=== PATIENT | female | born 1990 | race Caucasian/White ===

== ENCOUNTER → 2017-05-17 17:25 | Outpatient (CLI) | payer BC, SELFPAY ==
[2017-05-17 20:32] LABS: Chlamydia Trachomatis by PCR Negative (Negative); Neisserai gonorrhoeae by PCR Negative (Negative); Probe Check PASS; Sample Adequacy Control PASS; Specimen Processing Control PASS
[2017-05-25 07:18] LABS: HPV HC, High Risk Positive (Negative)
[2017-05-25 07:27] LABS: HPV Reflexed? YES, CHARGE PATIENT
== END ==
PROVIDERS: Visit Provider Obstetrics & Gynecology
DX: Z11.3 Encounter for screening for infections with a predominantly sexual mode of transmission (principal); R87.612 Low grade squamous intraepithelial lesion on cytologic smear of cervix (LGSIL)
CPT/HCPCS: 87491; 87591; 87624; 88175; G0145

== ENCOUNTER → 2017-06-03 11:08 | Outpatient (CLI) | payer BC, SELFPAY ==
[2017-06-03 13:52] LABS: Glucose, Dipstick Normal (Normal); Ketone-Dipstick Negative (Negative); Leukocyte Esterase-Dipstick Negative /ul (Negative); Nitrite-Dipstick Negative (Negative); Occult Blood-Urine Negative /ul (Negative); Protein-Dipstick Negative (Negative); Urine Bilirubin Dipstick Negative (Negative); Urine Clarity Clear (Clear); Urine Urobilinogen Normal (Normal)
[2017-06-03 13:54] LABS: Color, Urine Straw (Yellow)
[2017-06-03 13:56] LABS: Absolute Lymphocyte Count 2.47 X10^3/ul (0.83-4.51); Absolute Neutrophil Count 7.9 X10^3/uL (2.0-7.7); Basophil# 0.02 X10^3/uL; Basophil% 0.2 % (0-1); Eosinophil# 0.09 X10^3/uL; Eosinophils% 0.8 % (0-5); Hematocrit 41.8 % (37-47); Hemoglobin 13.9 g/dl (12.0-15.0); Lymphocyte # 2.47 X10^3/ul (4.0); Lymphocyte % 21.9 % (19-41); Mean Corp Hgb Conc 33.3 g/gl (32-36); Mean Corpuscular Hgb 28.1 pg (27.0-32.0); Mean Corpuscular Volume 84.4 fL (81-99); Mean Platelet Vol. 10.9 fl (6.2-12.0); Monocyte# 0.77 X10^3/uL; Monocyte% 6.8 % (0-10); Neutrophil # 7.91 X10^3/uL (2.7-7.7); Neutrophil % 69.9 % (47-70); Platelet Count 343 K/mm3 (150-450); RBC Distribution Width CV 14.2 % (11.6-14.6); RBC Distribution Width SD 43.5 fl (35.1-43.9); Red Blood Count 4.95 M/mm3 (4.2-5.4); White Blood Count 11.3 K/mm3 (4.4-11.0)
[2017-06-03 13:59] LABS: POSITIVE COUNT NO; POSITIVE DIFFERENTIAL NO; POSITIVE MORPHOLOGY NO
[2017-06-03 14:50] LABS: HIV - WCH Non-Reactive (Nonreactive); Rubella IgG 405.1 IU/mL
[2017-06-05 08:52] LABS: HEPATITIS B SURFACE AG Negative (Negative); Hep C Antibodies <0.1 s/co ratio (0.0-0.9)
[2017-06-10 02:54] LABS: Prenatal RPR NONREACTIVE (NONREACTIVE)
== END ==
PROVIDERS: Visit Provider Obstetrics & Gynecology
DX: Z34.81 Encounter for supervision of other normal pregnancy, first trimester (principal)
CPT/HCPCS: 36415; 81002; 84443; 85025; 86703; 86762; 86803; 87340

== ENCOUNTER → 2017-10-21 10:13 | Outpatient (CLI) | payer BC, SELFPAY ==
[2017-10-21 13:18] LABS: Hematocrit 35.7 % (37-47); Hemoglobin 11.2 g/dl (12.0-15.0); Mean Corp Hgb Conc 31.4 g/gl (32-36); Mean Corpuscular Hgb 26.2 pg (27.0-32.0); Mean Corpuscular Volume 83.4 fL (81-99); Mean Platelet Vol. 10.7 fl (6.2-12.0); Platelet Count 311 K/mm3 (150-450); RBC Distribution Width CV 14.7 % (11.6-14.6); Red Blood Count 4.28 M/mm3 (4.2-5.4); White Blood Count 13.5 K/mm3 (4.4-11.0)
[2017-10-21 13:29] LABS: Glucose Challenge Gest 1H 50g 213 mg/dL (70-140); Scan Indicated on CBC? Y/N NO
== END ==
PROVIDERS: Visit Provider Obstetrics & Gynecology
DX: Z34.83 Encounter for supervision of other normal pregnancy, third trimester (principal)
CPT/HCPCS: 36415; 82950; 85027

== ENCOUNTER 2017-11-08 14:00 | Outpatient (RCR) | payer BC, SELFPAY | END 2017-11-08 23:59 | LOC: NS 14:00 | PROVIDERS: Visit Provider Obstetrics & Gynecology | DX: O24.419 Gestational diabetes mellitus in pregnancy, unspecified control (principal); Z71.3 Dietary counseling and surveillance | CPT/HCPCS: 97802; G0108 ==

== ENCOUNTER 2017-12-02 15:43 | Outpatient (CLI) | payer BC, SELFPAY ==
[2017-12-02 16:42] VITALS: BMI 40.3
[2017-12-02 17:41] LABS: AST(SGOT) 13 U/L (15-37); Alanine Aminotransfer ALT/SGPT 18 U/L (13-56); Albumin, Serum 2.5 g/dL (3.2-5.0); Alkaline Phosphatase 147 U/L (45-117); Bilirubin, Direct 0.05 mg/dL (0.00-0.30); Globulin 4.4 g/dL (2.2-4.2); Protein, Total 6.9 g/dL (6.4-8.2)
--- NOTE | 2017-12-04 11:18 | OB.TRI.NOTE ---
History of Present Illness Reason For Visit: PRURITIS/ NST Date of Service: 12/02/17 Final MARYANN: 01/09/18 Gestational age: 34 Weeks and 4 Days History of Present Illness: 34+ week intrauterine presents for routine nonstress test for possible PUPPS. Allergies No Known Allergies Allergy (Verified 12/02/17 16:44) NST - FHR Rate Baby A NST Reactive:: Yes FHR Category:: Category I Impression/Plan 34+ week intrauterine with pruritus and possible PUPPS syndrome. Reactive nonstress test. Will release to home with routine instructions.
== END 2017-12-02 17:00 | disposition home or self-care (01) ==
LOC: WOBLAB 15:46 → WPOUT 16:14 → WP 16:15
PROVIDERS: Obstetrics & Gynecology; Visit Provider Obstetrics & Gynecology
DX: O26.893 Other specified pregnancy related conditions, third trimester (principal); L29.9 Pruritus, unspecified; Z3A.34 34 weeks gestation of pregnancy
CPT/HCPCS: 36415; 59025; 59050; 80076; 99218; G0378

== ENCOUNTER 2017-12-05 16:10 | Outpatient (CLI) | payer BC, SELFPAY ==
[2017-12-05 16:24] VITALS: BMI 41.7
--- NOTE | 2017-12-26 10:35 | OB.TRI.NOTE ---
History of Present Illness Date of Service: 12/05/17 Was patient seen by the physician?: No Reason For Visit: NST Date of Service: 12/05/17 Final MARYANN: 01/09/18 Gestational age: 35 Weeks and 0 Days History of Present Illness: 35 week intrauterine with gestational diabetes on glyburide presents for routine nonstress test. Allergies No Known Allergies Allergy (Verified 12/16/17 16:03) NST - FHR Rate Baby A NST Reactive:: Yes FHR Category:: Category I Impression/Plan 35 week intrauterine with gestational diabetes on glyburide. Reactive nonstress test. Continuing present care.
== END 2017-12-05 17:00 | disposition home or self-care (01) ==
LOC: WPOUT 16:14 → WP 16:16
PROVIDERS: Visit Provider Obstetrics & Gynecology
DX: O24.415 Gestational diabetes mellitus in pregnancy, controlled by oral hypoglycemic drugs (principal); Z3A.35 35 weeks gestation of pregnancy
CPT/HCPCS: 59025

== ENCOUNTER 2017-12-07 17:30 | Outpatient (RCR) | payer BC, SELFPAY ==
--- NOTE | 2017-12-07 06:14 | OB.TRI.NOTE ---
History of Present Illness Date of Service: 12/05/17 Was patient seen by the physician?: No Reason For Visit: GESTATIONAL DIABETES Date of Service: 12/05/17 Final MARYANN: 01/09/18 Gestational age: 35 Weeks and 0 Days History of Present Illness: 27 yo on Glyburide bid for gestational diabetes for scheduled NST . Allergies No Known Allergies Allergy (Verified 12/02/17 16:44) NST - FHR Rate Baby A Baseline: 120-130 with avg variabilty accels to 150-160 Variability:: Moderate Accelerations:: 15 x 15 Decelerations:: Variable - to 90 bpm, lasting less than 10 sec. NST Reactive:: Yes FHR Category:: Category I Uterine Activity:: no UCs noted Impression/Plan 35 wk gestational diabetes on Glyburide bid for scheduled NST Reactive NST Home Continue ofc visits as planned. NST twice weekly. Continue med and sugar checks.
== END 2017-12-09 23:59 ==
LOC: DC 17:30
PROVIDERS: Visit Provider Obstetrics & Gynecology
DX: O24.419 Gestational diabetes mellitus in pregnancy, unspecified control (principal); Z71.3 Dietary counseling and surveillance

== ENCOUNTER 2017-12-09 13:00 | Outpatient (CLI) | payer BC, SELFPAY ==
[2017-12-09 13:38] VITALS: BMI 41.5
--- NOTE | 2017-12-13 08:17 | OB.TRI.NOTE ---
History of Present Illness Date of Service: 12/09/17 Was patient seen by the physician?: No Reason For Visit: NST Date of Service: 12/09/17 Final MARYANN Source: US <20 weeks History of Present Illness: 27 yo diabetic female on Glyburide twice daily Presents for scheduled NST. Allergies No Known Allergies Allergy (Verified 12/02/17 16:44) NST - FHR Rate Baby A Baseline: 120-130 with accels to 160s. Variability:: Moderate, Marked Decelerations:: Variable - to 110 with quick return NST Reactive:: Yes, Appropriate for gestational age FHR Category:: Category I Uterine Activity:: rare UC noted Impression/Plan Gestational diabetic on Glyburide bid NST reactive Continue NST twice weekly, f/u appts as scheduled in ofc.
== END 2017-12-09 14:00 | disposition home or self-care (01) ==
LOC: WPOUT 13:05 → LAB 13:06
PROVIDERS: Visit Provider Obstetrics & Gynecology
DX: O24.415 Gestational diabetes mellitus in pregnancy, controlled by oral hypoglycemic drugs (principal); O76 Abnormality in fetal heart rate and rhythm complicating labor and delivery; Z3A.00 Weeks of gestation of pregnancy not specified
CPT/HCPCS: 59025

== ENCOUNTER 2017-12-12 11:00 | Outpatient (CLI) | payer BC, SELFPAY ==
[2017-12-12 11:12] VITALS: BMI 41.8
--- NOTE | 2017-12-12 22:17 | OB.TRI.NOTE ---
- Problem List (1) 36 weeks gestation of Status: Acute (2) Gestational diabetes Status: Acute Qualifiers: Gestational diabetes mellitus control: oral hypoglycemic-controlled Trimester: third trimester Qualified Code(s): O24.415 - Gestational diabetes mellitus in , controlled by oral hypoglycemic drugs History of Present Illness Date of Service: 12/12/17 Was patient seen by the physician?: No Reason For Visit: NST Final MARYANN: 01/09/18 Gestational age: 36 Weeks and 0 Days History of Present Illness: 27yo G1 @ 36 wga for scheduled NST, h/o GDM on Glyburide Allergies No Known Allergies Allergy (Verified 12/02/17 16:44) NST - FHR Rate Baby A Baseline: 130 Variability:: Moderate Accelerations:: 15 x 15 Decelerations:: None NST Reactive:: Yes FHR Category:: Category I Uterine Activity:: 0/10 Impression/Plan 27yo G1 @ 36wga with reactive NST d/c home
== END 2017-12-12 11:45 | disposition home or self-care (01) ==
LOC: WPOUT 11:01 → WP 11:03
PROVIDERS: Visit Provider Obstetrics & Gynecology
DX: O24.415 Gestational diabetes mellitus in pregnancy, controlled by oral hypoglycemic drugs (principal); Z3A.36 36 weeks gestation of pregnancy
CPT/HCPCS: 59025; 59050; 99218; G0378

== ENCOUNTER 2017-12-13 08:00 | Outpatient (RCR) | payer BC, SELFPAY | END 2017-12-13 23:59 | LOC: DC 08:00 | PROVIDERS: Visit Provider Obstetrics & Gynecology | DX: O24.419 Gestational diabetes mellitus in pregnancy, unspecified control (principal); Z71.3 Dietary counseling and surveillance ==

== ENCOUNTER 2017-12-16 15:45 | Outpatient (CLI) | payer BC, SELFPAY ==
[2017-12-16 16:02] VITALS: BMI 42.7
--- NOTE | 2017-12-19 07:56 | OB.TRI.NOTE ---
History of Present Illness Date of Service: 12/18/17 Was patient seen by the physician?: No Reason For Visit: NST Date of Service: 12/18/17 Final MARYANN: 01/09/18 Final MARYANN Source: US <20 weeks Gestational age: 37 Weeks and 0 Days History of Present Illness: GDM for scheduled NST Allergies No Known Allergies Allergy (Verified 12/16/17 16:03) Physical Exam General: Alert, Oriented x3, Cooperative, No apparent distress Cardiovascular: Regular rate, Regular Rhythm Lungs: Clear to auscultation, Normal air movement Abdomen: Soft, Non Tender, Non-Distended, Gravid, Appropriate for Gestational Age Extremities:: No edema Neurological: Neuro grossly intact Estimated gestational size: Appropriate for gestational size Presentation: Cephalic NST - FHR Rate Baby A Baseline: 130s Variability:: Moderate Accelerations:: 15 x 15 Decelerations:: None NST Reactive:: Yes, Appropriate for gestational age FHR Category:: Category I Uterine Activity:: none Impression/Plan Reassuring NST at 37 weeks.
== END 2017-12-16 16:55 | disposition home or self-care (01) ==
LOC: WPOUT 15:51 → WP 15:53
PROVIDERS: Visit Provider Obstetrics & Gynecology
DX: O24.419 Gestational diabetes mellitus in pregnancy, unspecified control (principal); Z3A.37 37 weeks gestation of pregnancy
CPT/HCPCS: 59025

== ENCOUNTER → 2017-12-16 18:29 | Outpatient (CLI) | payer BC, SELFPAY ==
[2017-12-16 21:35] LABS: Group B Strep DNA By PCR Negative (Negative); Internal Control PASS; Probe Check PASS; Specimen Processing Control PASS
== END ==
PROVIDERS: Visit Provider Obstetrics & Gynecology
DX: Z36.85 Encounter for antenatal screening for Streptococcus B (principal)
CPT/HCPCS: 87081; 87653

== ENCOUNTER 2017-12-19 16:00 | Outpatient (CLI) | payer BC, SELFPAY ==
[2017-12-19 16:12] VITALS: BMI 41.1
--- NOTE | 2017-12-22 07:57 | OB.TRI.NOTE ---
History of Present Illness Date of Service: 12/19/17 Was patient seen by the physician?: No Reason For Visit: NST Date of Service: 12/19/17 Final MARYANN: 01/09/18 Final MARYANN Source: US <20 weeks Gestational age: 37 Weeks and 0 Days History of Present Illness: 27 yo female on Glyburide presents for scheduled NST 2/2 gestational diabetes. Allergies No Known Allergies Allergy (Verified 12/16/17 16:03) NST - FHR Rate Baby A Baseline: 130-140s Variability:: Moderate Accelerations:: 15 x 15 Decelerations:: None NST Reactive:: Yes, Appropriate for gestational age FHR Category:: Category I Uterine Activity:: irreg UCs Impression/Plan Gestational diabetes on Glyburide bid Reactive NST home Continue Glyburide with inc dose as discussed, MFM referral RTO as scheduled NSTs twice weekly
== END 2017-12-19 16:45 | disposition home or self-care (01) ==
LOC: WPOUT 16:05 → WP 16:06
PROVIDERS: Visit Provider Obstetrics & Gynecology
DX: O24.415 Gestational diabetes mellitus in pregnancy, controlled by oral hypoglycemic drugs (principal); Z3A.37 37 weeks gestation of pregnancy
CPT/HCPCS: 59025; 59050; 99218; G0378

== ENCOUNTER 2017-12-27 16:05 | Outpatient (CLI) | payer BC, SELFPAY ==
--- NOTE | 2017-12-28 04:52 | OB.TRI.NOTE ---
History of Present Illness Date of Service: 12/27/17 Was patient seen by the physician?: No Reason For Visit: NST Date of Service: 12/27/17 Final MARYANN: 01/09/18 Final MARYANN Source: US <20 weeks Gestational age: 38 Weeks and 1 Days History of Present Illness: 27 yo diabetic female at 38 1/7 wk presents for scheduled NST Short stature, elects primary C/S due to EFW 8 04/12 - 9 # Allergies No Known Allergies Allergy (Verified 12/27/17 16:39) NST - FHR Rate Baby A Baseline: 130-140s with accels to 160s Variability:: Moderate Accelerations:: 15 x 15 Decelerations:: None NST Reactive:: Yes, Appropriate for gestational age FHR Category:: Category I Uterine Activity:: no UCs Impression/Plan Reactive NST Gestational diabetes on Glyburide Home. RTO as scheduled. Plan primary C/S 01/02/18
== END 2017-12-27 16:35 | disposition home or self-care (01) ==
LOC: WPOUT 16:05 → WP 16:05
PROVIDERS: Visit Provider Obstetrics & Gynecology
DX: O24.415 Gestational diabetes mellitus in pregnancy, controlled by oral hypoglycemic drugs (principal); Z3A.38 38 weeks gestation of pregnancy
CPT/HCPCS: 59025

== ENCOUNTER 2017-12-29 11:00 | Outpatient (CLI) | payer BC, SELFPAY ==
[2017-12-29 11:34] VITALS: BMI 42.5
--- NOTE | 2017-12-29 23:00 | OB.TRI.NOTE ---
- Problem List (1) 38 weeks gestation of Status: Acute History of Present Illness Date of Service: 12/29/17 Was patient seen by the physician?: No Reason For Visit: NST Final MARYANN: 01/09/18 Final MARYANN Source: US <20 weeks Gestational age: 38 Weeks and 3 Days History of Present Illness: Scheduled NST Allergies No Known Allergies Allergy (Verified 01/02/18 06:31) NST - FHR Rate Baby A Baseline: 150 Variability:: Moderate Accelerations:: 15 x 15 Decelerations:: None NST Reactive:: Yes FHR Category:: Category I Uterine Activity:: 0/10 Impression/Plan 27yo G1 @ 38 3/7wga with Cat I FHR d/c home
== END 2017-12-29 12:01 | disposition home or self-care (01) ==
LOC: WPOUT 11:08 → WP 11:08
PROVIDERS: Visit Provider Obstetrics & Gynecology
DX: O24.419 Gestational diabetes mellitus in pregnancy, unspecified control (principal); Z3A.36 36 weeks gestation of pregnancy; Z87.891 Personal history of nicotine dependence
CPT/HCPCS: 59025

== ENCOUNTER 2018-01-02 05:35 | Inpatient (IN) | payer BC, SELFPAY ==
[2017-12-29 11:37] VITALS: BMI 42.5
[2018-01-02] VITALS (23 sets, daily range): BP systolic 98–142; BP diastolic 38–86; PULSE 64–91; RESP 14–21; TEMP 35.7–36.6; O2SAT 97–100; BMI 42.3
[2018-01-02] MEDS: Lactated Ringers 1,000 ML 999 ML IV (06:00)
[2018-01-02 06:15] LABS: Bedside Glucose 78 mg/dL (70-110)
[2018-01-02 06:26] LABS: Absolute Lymphocyte Count 2.43 X10^3/ul (0.83-4.51); Absolute Neutrophil Count 6.2 X10^3/uL (2.0-7.7); Basophil# 0.02 X10^3/uL; Basophil% 0.2 % (0-1); Eosinophil# 0.04 X10^3/uL; Eosinophils% 0.4 % (0-5); Hematocrit 32.2 % (37-47); Hemoglobin 10.1 g/dl (12.0-15.0); Lymphocyte # 2.43 X10^3/ul (4.0); Lymphocyte % 25.5 % (19-41); Mean Corp Hgb Conc 31.4 g/gl (32-36); Mean Corpuscular Hgb 23.1 pg (27.0-32.0); Mean Corpuscular Volume 73.7 fL (81-99); Mean Platelet Vol. 11.8 fl (6.2-12.0); Monocyte# 0.81 X10^3/uL; Monocyte% 8.5 % (0-10); Neutrophil # 6.17 X10^3/uL (2.7-7.7); Neutrophil % 64.9 % (47-70); Platelet Count 250 K/mm3 (150-450); RBC Distribution Width CV 16.3 % (11.6-14.6); Red Blood Count 4.37 M/mm3 (4.2-5.4); White Blood Count 9.5 K/mm3 (4.4-11.0)
[2018-01-02 06:36] LABS: POSITIVE COUNT NO; POSITIVE DIFFERENTIAL NO; POSITIVE MORPHOLOGY NO
[2018-01-02 06:48] LABS: International Normalized Ratio 0.9; Prothrombin Time (Protime)PT. 12.1 SECONDS (11.7-14.9)
[2018-01-02 06:49] LABS: Partial Thromboplast Time 32.3 Seconds (24.1-36.2)
[2018-01-02] MEDS: Sodium Citrate/Citric Acid 30 ML UDC PO (07:02)
[2018-01-02] MEDS: Lactated Ringers 1,000 ML 150 ML IV (07:03)
[2018-01-02] MEDS: Cefazolin 2 GM in 0.9% Normal Saline 100 ML IV (07:26)
--- NOTE | 2018-01-02 07:30 | PCM.DCCSEC ---
Discharge Diet: No Restrictions Discharge Activity: May not drive while taking narcotic pain medications., May Shower, May Take a Tub Bath Return to work on:: 02/20/18 May resume sexual activity in: 4-6 weeks Lifting Restrictions: 20 pounds Additional Activity Instructions:: Nothing in the vagina for 4-6 weeks. You may return to work/school in 6 weeks. Change Dressing in (Days):: 4 Remove Dressing in (days):: 4 Cleanse incision/area with: Soap & Water, Keep Dressing Clean & Dry Additional Instructions: If you experience any of the following, contact your healthcare provider. Bleeding that soaks a pad every hour for 2 hours Fever 100.4 or higher Unrelieved incision or abdominal pain Swelling, redness, discharge or bleeding from your incision Problems urinating (including inability to urinate or burning while urinating). Visual changes Severe headache Flu-like symptoms Pain or redness in one of both of your breasts Pain, warmth, tenderness or swelling in your legs, especially the calf area Frequent nausea and vomiting Symptoms of depression or anxiety If you experience any of the following, call 911 or go to the nearest Emergency Room. Chest pain Problems breathing Seizure activity Partial or complete paralysis of a body part, slurred speech, weakness or drooping of the face, or a sudden inability to walk or hold your balance Allergies/Adverse Reactions: Allergies No Known Allergies Allergy (Verified 01/02/18 06:31) Medications to take at Discharge [id number]/FA/Omega3/Dha/Fish Oil [ Gummies] 2 each PO DAILY 12/05/17 Omeprazole 20 mg PO DAILY 12/16/17 Docusate Sodium [Colace] 100 mg PO BID PRN PRN #30 cap 01/02/18 Naproxen [Naprosyn] 250 - 500 mg PO TID PRN #30 tab 01/02/18 Oxycodone [Oxyir] 5 mg PO Q6H PRN PRN 7 Days #20 tablet 01/02/18 The following prescriptions were given: Oxycodone [Oxyir] 5 mg PO Q6H PRN PRN 7 Days #20 tablet PRN Reason: Mod-Severe Pain (4-01/18) Docusate Sodium [Colace] 100 mg PO BID PRN PRN #30 cap PRN Reason: Constipation Naproxen [Naprosyn] 250 - 500 mg PO TID PRN #30 tab PRN Reason: Mild-Mod Pain (-08/18) Follow-Up: Call to make an appointment with your doctor for an incision check in 1-2 weeks. You will also need a 6 week post- follow up appointment. Test results from this visit will be discussed in further detail at your follow-up appointment, if applicable. Please Follow Up With: Selena Irving MD - [phone] When: Call to make an appointment for an incision check in 2 weeks. Primary Care Physician: Care Physician,No Primary [Primary Care Provider] - Proposed Discharge Date: 01/05/18
--- NOTE | 2018-01-02 07:34 | DCINST_ITS ---
Discharge Diet: No Restrictions Discharge Activity: May not drive while taking narcotic pain medications., May Shower, May Take a Tub Bath Return to work on:: 02/20/18 May resume sexual activity in: 4-6 weeks Lifting Restrictions: 20 pounds Additional Activity Instructions:: Nothing in the vagina for 4-6 weeks. You may return to work/school in 6 weeks. Change Dressing in (Days):: 4 Remove Dressing in (days):: 4 Cleanse incision/area with: Soap & Water, Keep Dressing Clean & Dry Additional Instructions: If you experience any of the following, contact your healthcare provider. * Bleeding that soaks a pad every hour for 2 hours * Fever 100.4 or higher * Unrelieved incision or abdominal pain * Swelling, redness, discharge or bleeding from your incision * Problems urinating (including inability to urinate or burning while urinating) . * Visual changes * Severe headache * Flu-like symptoms * Pain or redness in one of both of your breasts * Pain, warmth, tenderness or swelling in your legs, especially the calf area * Frequent nausea and vomiting * Symptoms of depression or anxiety If you experience any of the following, call 911 or go to the nearest Emergency Room. * Chest pain * Problems breathing * Seizure activity * Partial or complete paralysis of a body part, slurred speech, weakness or drooping of the face, or a sudden inability to walk or hold your balance Allergies/Adverse Reactions: Allergies No Known Allergies Allergy (Verified 01/02/18 06:31) Medications to take at Discharge [id number]/FA/Omega3/Dha/Fish Oil [ Gummies] 2 each PO DAILY 12/05/17 Omeprazole 20 mg PO DAILY 12/16/17 Docusate Sodium [Colace] 100 mg PO BID PRN PRN #30 cap 01/02/18 Naproxen [Naprosyn] 250 - 500 mg PO TID PRN #30 tab 01/02/18 Oxycodone [Oxyir] 5 mg PO Q6H PRN PRN 7 Days #20 tablet 01/02/18 The following prescriptions were given: Oxycodone [Oxyir] 5 mg PO Q6H PRN PRN 7 Days #20 tablet PRN Reason: Mod-Severe Pain (-01/18) Docusate Sodium [Colace] 100 mg PO BID PRN PRN #30 cap PRN Reason: Constipation Naproxen [Naprosyn] 250 - 500 mg PO TID PRN #30 tab PRN Reason: Mild-Mod Pain (-08/18) Follow-Up: Call to make an appointment with your doctor for an incision check in 1-2 weeks. You will also need a 6 week post- follow up appointment. Test results from this visit will be discussed in further detail at your follow- up appointment, if applicable. Please Follow Up With: Selena Irving MD - [phone] When: Call to make an appointment for an incision check in 2 weeks. Primary Care Physician: Care Physician,No Primary [Primary Care Provider] - Proposed Discharge Date: 01/05/18
--- NOTE | 2018-01-02 07:37 | OP.PCM_ITS ---
Operative Report Date of Procedure: 01/02/18 - 39 wk Primary C/S Gest DM LGA PROCEDURE: Primary C section. Preoperative diagnosis: 39 wk EGA Gestational Diabetes Mellitus Elective primary C/S -- short stature, large baby Postop diagnosis: 39 wk EGA Gestational Diabetes Mellitus Elective primary C/S -- short stature, large baby Anesthesia: Kei, Dr Moore Surgeon: Selena Irving MD Dental Office Coordinator: Glen Rm, PATRICIA EBL 600 cc Complications: none Drains: Bueno draining clear yellow appearing urine Fluids: replacement LR Findings: At amniotomy, clear fluid was noted. Dee viable male in vertex presentation. Apgars 8/9, Baby weight: 8# 12 oz There was a normal appearing uterus, fallopian tubes and ovaries bilaterally. There were minimal filmy adhesions between the bladder and lower uterine segment. PATH: Routine cord blood for typing collected. Routine cord gases were sent. Narrative account: After the risks, benefits and alternatives of the procedure were reviewed with the patient, informed consent was obtained. The patient was taken to the Operating room with an IV running, and placed in a seated position on the operating table for placement of the spinal. Once the spinal had been administered, she was briefly frog-legged for Bueno catheter placement, and then repositioned to dorsal supine position with leftward displacement of the uterus, and prepped and draped in the usual sterile fashion. Once the spinal was deemed adequate, a Pfannenstiel skin incision was created using the knife . The incision was carried down to the rectus fascia using the knife. The fascia was nicked in the midline. The fascial incision was extended bilaterally using curved Almaguer scissors. The superior aspect of the fascial incision was grasped with Bobby clamps and tented up and the underlying rectus abdominal muscles were dissected free. In a similar manner, the inferior aspect of the facial incision was grasped with Bobby clamps tented up and the underlying rectus abdominal muscles were dissected free. The rectus abdominis muscles were in the midline and the peritoneum was identified and entered by blunt dissection high in the incision. The peritoneum was stretched laterally and a bladder blade was inserted. A bladder flap was created along the lower uterine segment with Metzenbaum scissors . The uterine incision was then created using Metzenbaum scissors. The operators fingertips were used to extend the uterine incision by blunt dissection in a caudad- cephalad orientation . Clear fluid was noted at amniotomy. The vertex was then delivered atraumatically through the incision. The OP and nares were bulb suctioned on the abdomen. The shoulders delivered easily, reducing L shoulder first . The cord clamped x two and cut. And the was handed off to the nurse awaiting delivery after briefly showing him to his parents. The baby had a spontaneous, vigorous cry. The placenta was then delivered. The uterus was exteriorized and cleared of clots and debris . The uterine incision was repaired with 1 Vicryl in a running locked fashion. A second imbricating layer was then placed, using 1 Monocryl in running nonlocked fashion. Bovie cautery was used to treat any bleeding areas . Excellent hemostasis was noted. At this point the uterus was returned to the abdominal cavity. The gutters were cleared of clots and debris and the incision at the uterus was inspected. Renata was applied along the entire incision for continued hemostasis. Excellent hemostasis was noted. The peritoneal edges and rectus abdominis muscles were reapproximated in the midline with a interrupted vertical mattress stitches of 1 Vicryl. Renata was applied to this layer. Excellent hemostasis was noted at the subfascial space Renata was dusted over this layer as well. The fascia was closed in a running nonlocked fashion with a Stratofix. The Subcutaneous fatty tissue was Bovie cauterized as needed for hemostasis. Renata was liberally dusted at this layer to prevent seroma formation. This layer was then reapproximated in a two layer closure of running 3-0 Vicryl to eliminate space. The skin edges were closed in a Subcuticular stitch of 4-0 Monocryl. The incision was cleansed. Cavilon, Steristrips, and Mepilex dressing were applied to the skin . The patient was then transferred to the recovery room bed in stable condition after tolerating the procedure well. Sponge, lap, needle and instrument counts correct times two. Medications given preop and intraoperatively included: Ancef given connie cleaner to the operating room. The patient also received Pitocin given IV after cord clamp , and Toradol 30 mg IV times one. For a complete listing of medications given preop and intraoperatively, please see the anesthesia record.
[2018-01-02] MEDS: Oxytocin 30 units/NS 500 ml 30 UNITS/500 ML IV.SOLN 167 UNITS IV (07:51)
[2018-01-02] MEDS: Lactated Ringers 1,000 ML 100 ML IV ×2 (08:30→13:19)
[2018-01-02 09:05] LABS: Bedside Glucose 105 mg/dL (70-110)
[2018-01-02] MEDS: Ketorolac 30 MG/ML Syringe IV ×2 (12:39→18:27)
[2018-01-02] MEDS: proMETHazine 25 MG/ML Syringe 12.5 MG IV (13:19)
[2018-01-02 15:36] LABS: Bedside Glucose 97 mg/dL (70-110)
--- NOTE | 2018-01-02 15:37 | NURSING ---
late entry- 1528 BSC obtained per Nicola Fox RN, results 97.
[2018-01-03] VITALS (8 sets, daily range): BP systolic 108–128; BP diastolic 55–80; PULSE 75–96; RESP 14–18; TEMP 36.1–37.2; O2SAT 96–99
[2018-01-03] MEDS: Ketorolac 30 MG/ML Syringe IV ×3 (00:07→11:42)
[2018-01-03] MEDS: Lactated Ringers 1,000 ML 100 ML IV (00:14)
[2018-01-03 06:39] LABS: Mean Corpuscular Hgb 23.1 pg (27.0-32.0); Mean Corpuscular Volume 74.6 fL (81-99); Mean Platelet Vol. 12.1 fl (6.2-12.0); Platelet Count 217 K/mm3 (150-450); RBC Distribution Width CV 16.3 % (11.6-14.6); RBC Distribution Width SD 42.8 fl (35.1-43.9); Red Blood Count 3.89 M/mm3 (4.2-5.4); White Blood Count 11.9 K/mm3 (4.4-11.0)
[2018-01-03 06:41] LABS: Scan Indicated on CBC? Y/N NO
[2018-01-03 06:46] LABS: Bedside Glucose 100 mg/dL (70-110)
--- NOTE | 2018-01-03 08:11 | PCM.PN.OB ---
Subjective: Patient without complaints. Tolerating diet well. Positive flatus. Pain well controlled. Baby needs to stay in nursery for about 4 days. - Physical Exam Vital Signs AF, VSS Temp Pulse Resp BP Pulse Ox 98.2 F 78 17 108/55 L 99 01/03/18 04:20 01/03/18 07:00 01/03/18 07:00 01/03/18 04:20 01/03/18 07:00 Oxygen Delivery Method Room Air Weight: 202 lb 13.204 oz Body Mass Index (BMI) 42.3 Intake and Output for Last 24 Hours 01/01/18 01/02/18 01/03/18 23:59 23:59 23:59 Intake Total 2121 / 2121 1494 / 1494 Output Total 825 / 825 400 / 400 Balance 1296 / 1296 1094 / 1094 Laboratory Tests Past 24 Hrs 01/03/18 06:25 WBC 11.9 H RBC 3.89 L Hgb 9.0 L Hct 29.0 L MCV 74.6 L MCH 23.1 L MCHC 31.0 L RDW 16.3 H RDW Differential 42.8 Plt Count 217 MPV 12.1 H POC Glucose 01/03/18 01/02/18 01/02/18 06:41 15:28 08:56 POC Glucose 100 97 105 Wound is clean, dry, intact. Good urine output. Hemoglobin okay. Medical Necessity - Tobacco Use Smoking Status: Former smoker Assessment/Plan All Active Problems 36 weeks gestation of (Acute) Gestational diabetes (Acute) Doing well status post on postoperative day #1. Continuing present care.
[2018-01-03] MEDS: Prenatal Vits Tablet 1 TABLET PO (11:42)
[2018-01-03] MEDS: Pantoprazole Sodium 20 MG Tablet PO (11:42)
[2018-01-03] MEDS: 0.9% Saline Lock 10 ML Syringe IV (11:47)
[2018-01-03] MEDS: Acetaminophen 500 MG Tablet 1000 MG PO (16:48)
[2018-01-03] MEDS: oxyCODONE 5 MG Tablet PO ×2 (18:23→22:24)
[2018-01-03] MEDS: Senna/Docusate Sodium 1 Tablet PO (22:24)
[2018-01-04 01:24] VITALS: BP 134/83; PULSE 96; RESP 16; TEMP 36.4; O2SAT 95
[2018-01-04] MEDS: oxyCODONE 5 MG Tablet PO ×3 (03:38→16:48)
--- NOTE | 2018-01-04 08:17 | NURSING ---
0814: Administered oxycodone 5 mg (1 tablet) PO under supervision of clinical instructor, Terri Bland
[2018-01-04 08:19] VITALS: BP 138/88; PULSE 90; RESP 16; TEMP 36.5; O2SAT 98
--- NOTE | 2018-01-04 09:17 | PCM.PN.OB ---
Subjective: Patient without complaints. Tolerating diet well. Breast-feeding going well. Baby needs to stay a few more days perhaps. - Physical Exam Vital Signs Temp Pulse Resp BP Pulse Ox 97.7 F L 90 16 138/88 H 98 01/04/18 08:19 01/04/18 08:19 01/04/18 08:19 01/04/18 08:19 01/04/18 08:19 Oxygen Delivery Method Room Air Weight: 202 lb 13.204 oz Body Mass Index (BMI) 42.3 Intake and Output for Last 24 Hours 01/02/18 01/03/18 01/04/18 23:59 23:59 23:59 Intake Total 2121 / 2121 1494 / 1494 Output Total 825 / 825 1600 / 1600 Balance 1296 / 1296 -106 / -106 Medical Necessity - Tobacco Use Smoking Status: Former smoker Assessment/Plan All Active Problems 36 weeks gestation of (Acute) Gestational diabetes (Acute) Doing well postoperative day #2 status post . Continuing present care.
[2018-01-04] MEDS: Pantoprazole Sodium 20 MG Tablet PO (10:23)
[2018-01-04] MEDS: Prenatal Vits Tablet 1 TABLET PO (10:23)
--- NOTE | 2018-01-04 11:00 | NURSING ---
1027: Administered protonix 20 mg and vitamin under supervision of clinical instructor, Treri Bland.
[2018-01-04] MEDS: Naproxen 250 MG Tablet PO ×2 (12:10→20:08)
[2018-01-04 14:00] VITALS: BP 125/70; PULSE 90; RESP 18; TEMP 36.6; O2SAT 97
--- NOTE | 2018-01-04 14:40 | NURSING ---
This nursing administrator reviewed the charting completed by Ludmila Toth, student nurse.
[2018-01-04 20:00] VITALS: BP 134/86; PULSE 87; RESP 18; TEMP 36.7; O2SAT 99
[2018-01-05 02:00] VITALS: BP 127/64; PULSE 84; RESP 16; TEMP 36.6; O2SAT 97
[2018-01-05] MEDS: Naproxen 250 MG Tablet PO ×2 (05:29→15:17)
[2018-01-05 08:19] VITALS: BP 154/84; PULSE 90; RESP 16; TEMP 36.9; O2SAT 96
--- NOTE | 2018-01-05 09:27 | PN.OBGYN_ITS ---
Subjective: Patient without complaints. Tolerating diet well. In the nursery breast- feeding baby. Wants to stay another day. - Physical Exam Vital Signs Temp Pulse Resp BP Pulse Ox 98.5 F 90 16 154/84 H 96 01/05/18 08:19 01/05/18 08:19 01/05/18 08:19 01/05/18 08:19 01/05/18 08:19 Oxygen Delivery Method Room Air Weight: 202 lb 13.204 oz Body Mass Index (BMI) 42.3 Intake and Output for Last 24 Hours 01/03/18 01/04/18 01/05/18 23:59 23:59 23:59 Intake Total 1494 / 1494 Output Total 1600 / 1600 Balance -106 / -106 Medical Necessity - Tobacco Use Smoking Status: Former smoker Assessment/Plan All Active Problems 36 weeks gestation of (Acute) Gestational diabetes (Acute) Doing well postoperative day #3 status post repeat . Continuing present care.
[2018-01-05] MEDS: Pantoprazole Sodium 20 MG Tablet PO (11:31)
[2018-01-05] MEDS: Prenatal Vits Tablet 1 TABLET PO (11:37)
[2018-01-05] MEDS: Acetaminophen 500 MG Tablet 1000 MG PO (11:44)
[2018-01-05 16:15] VITALS: BP 136/84; PULSE 95; RESP 18; TEMP 37.1; O2SAT 97
--- NOTE | 2018-01-09 10:23 | PCM.DC.BLA ---
Discharge Summary Date of Admission: 01/02/18 Date of Discharge: 01/05/18 Summary: Admission diagnosis: 39 wk EGA Gestational Diabetes Mellitus Procedure: Elective primary C/S -- short stature, large baby Findings: At amniotomy, clear fluid was noted. Dee viable male in vertex presentation. Apgars 8/9, Baby weight: 8# 12 oz There was a normal appearing uterus, fallopian tubes and ovaries bilaterally. There were minimal filmy adhesions between the bladder and lower uterine segment. HPI: Uneventful care otherwise. PE: Unremarkable. Hospital Course: The patient is a 27 year old G 1 P 0 who presented to [facility] at 39 weeks gestation. She had a primary elective for gestational diabetes and suspected CPD. Postoperatively she did well demonstrating a stable HGB on POD 1 and bowel fxn by POD 3 at which time it was felt she was ready for discharge. Homegoing Instruction: She was instructed not to drive for several days or if using narcotic pain medication, not to put anything in the vagina for 4 weeks, not to lift >25 lbs for 6 weeks and to call the office for an appointment in 2 weeks and 6 weeks. Discharge Medications: She was given a prescription for Oxycodone and Colace and also plans to use Aleve or Motrin or Tylenol at home as needed for pain and constipation.
== END 2018-01-05 17:40 | disposition home or self-care (01) | DRG 766 ==
PROVIDERS: Admitting Provider Obstetrics & Gynecology; Visit Provider Obstetrics & Gynecology
PROC: 10D00Z1 Extraction of Products of Conception, Low, Open Approach (ICD-10-PCS; CPT 59514; principal; 2018-01-02 07:15)
DX: O66.2 Obstructed labor due to unusually large fetus (principal); O24.425 Gestational diabetes mellitus in childbirth, controlled by oral hypoglycemic drugs; Z3A.39 39 weeks gestation of pregnancy; Z37.0 Single live birth; Z87.891 Personal history of nicotine dependence; Z79.84 Long term (current) use of oral hypoglycemic drugs
CPT/HCPCS: 82962; 85025; 85027; 85610; 85730; 86850; 86900; 99218; J7120; 90686; A4216; G0378

== ENCOUNTER 2018-01-11 12:40 | Outpatient (CLI) | payer BC, SELFPAY | END 2018-01-11 13:45 | disposition home or self-care (01) | LOC: WPOUT 13:01 → WP 13:01 | PROVIDERS: Referring Provider Obstetrics & Gynecology; Visit Provider Obstetrics & Gynecology | DX: Z39.1 Encounter for care and examination of lactating mother (principal) | CPT/HCPCS: 96152 ==

== ENCOUNTER → 2018-02-13 15:36 | Outpatient (CLI) | payer BC, SELFPAY ==
[2018-02-17 10:39] LABS: HPV Reflexed? NOT INDICATED
== END ==
PROVIDERS: Visit Provider Obstetrics & Gynecology
DX: Z12.4 Encounter for screening for malignant neoplasm of cervix (principal)
CPT/HCPCS: 88175; G0145

== ENCOUNTER 2018-04-23 00:51 | Emergency (ER) | payer BC, SELFPAY ==
[2018-04-23 00:53] VITALS: BP 128/90; PULSE 83; RESP 17; TEMP 36.8; O2SAT 98; BMI 34.3
[2018-04-23] MEDS: Ketorolac 60 MG/2 ML Vial IM (01:42)
[2018-04-23] MEDS: Orphenadrine 60 MG/2 ML Ampul IM (01:42)
--- NOTE | 2018-04-23 02:48 | ED.VISSUMM ---
- ER Visit Summary Date of Service: 04/23/18 Chief Complaint: Lower back pain History of Present Illness: The patient is a 27 F with right sided lower back pain. Patient has had right-sided lower back pain previously after an injury. She had sciatica during her . She gave approximately 4 months ago and her symptoms seem to improve, and then her pain recurred yesterday. She has pain in her right lower back that radiates down her right hip and right leg. She took Tylenol and oxycodone at home with minimal relief. She denies any new trauma. Denies any bowel or bladder changes. Denies urinary symptoms. Denies any abdominal pain or GI symptoms. Denies fevers. Denies any history of back surgery. She is breast-feeding. Physical Examination: Afebrile and vital signs unremarkable. Alert and oriented. Uncomfortable but not toxic or in distress. Heart regular. Lungs clear. Neck shows right lumbar paraspinal muscle tenderness to palpation. Straight leg raise is negative. Reflexes normal. Strength and sensation normal. Skin unremarkable. Test Results: None performed Emergency Department Course and Treatment: Patient discussed with pharmacy. She was treated with Toradol and Norflex. She will pump and dump for couple days. She does have milk saved. Patient was interested in further treatment for sciatica and her symptoms. I advised that Tylenol is safe. Anti-inflammatories, opioids, steroids, and muscle relaxers all pose a potential risk to her through breastmilk. She is very reluctant to expose her baby to any medications. She would like to try rest and Tylenol. Will follow up with her doctor. Return for any new or worsening issues. Treatment Plan: As above Disposition: Discharge Impression: 1. Right-sided sciatica This note was generated with [employer] software. It may contain incorrect words, spelling, and punctuation that were not noted in review of the chart prior to signing ED Disposition - Plan for ED Patient: Chief Complaint: Back Referrals: Uvaldo Michel MD [Primary Care Provider] -
--- NOTE | 2018-04-23 02:51 | ED.DEP ---
ED Disposition - Plan for ED Patient: Chief Complaint: Back Instructions: ED Sciatica Referrals: Uvaldo Michel MD [Primary Care Provider] -
[2018-04-23 02:57] VITALS: BP 107/68; PULSE 75; RESP 15; O2SAT 99
== END 2018-04-23 02:57 | disposition home or self-care (01) ==
LOC: ED 01:20
PROVIDERS: Emergency Provider Emergency Medicine; Family Provider Family Medicine; PCP Family Medicine
DX: M54.41 Lumbago with sciatica, right side (principal)
CPT/HCPCS: 96372; 99282

== ENCOUNTER → 2019-03-13 16:17 | Outpatient (CLI) | payer BC, SELFPAY ==
[2019-03-13 19:25] LABS: Chlamydia Trachomatis by PCR Negative (Negative); Neisserai gonorrhoeae by PCR Negative (Negative); Probe Check PASS; Sample Adequacy Control PASS; Specimen Processing Control PASS
[2019-03-19 17:29] LABS: HPV HC, High Risk Positive (Negative)
== END ==
PROVIDERS: Visit Provider Obstetrics & Gynecology
DX: Z32.01 Encounter for pregnancy test, result positive (principal); Z12.4 Encounter for screening for malignant neoplasm of cervix; Z11.3 Encounter for screening for infections with a predominantly sexual mode of transmission
CPT/HCPCS: 87491; 87591; 87624; 88175; G0145

== ENCOUNTER → 2019-03-20 15:09 | Outpatient (CLI) | payer BC, SELFPAY ==
[2019-03-20 15:56] LABS: Color, Urine Yellow (Yellow); Glucose, Dipstick Normal (Normal); Ketone-Dipstick Negative (Negative); Leukocyte Esterase-Dipstick Negative /ul (Negative); Nitrite-Dipstick Negative (Negative); Occult Blood-Urine Negative /ul (Negative); Protein-Dipstick Negative (Negative); Urine Bilirubin Dipstick Negative (Negative); Urine Clarity Cloudy (Clear); Urine Urobilinogen Normal (Normal)
[2019-03-20 15:58] LABS: Absolute Lymphocyte Count 3.11 X10^3/uL (0.83-4.51); Absolute Neutrophil Count 8.8 X10^3/uL (2.0-7.7); Basophil# 0.04 X10^3/uL; Basophil% 0.3 % (0-1); Eosinophils% 0.8 % (0-5); Hematocrit 42.6 % (37-47); Hemoglobin 13.8 g/dL (12.0-15.0); Lymphocyte # 3.11 X10^3/ul (4.0); Lymphocyte % 24.6 % (19-41); Mean Corp Hgb Conc 32.4 g/dL (32-36); Mean Corpuscular Hgb 27.9 pg (27.0-32.0); Mean Corpuscular Volume 86.1 fL (81-99); Mean Platelet Vol. 10.2 fl (6.2-12.0); Monocyte# 0.58 X10^3/uL; Monocyte% 4.6 % (0-10); NRBC Flagged by Analyzer 0 % (0-5); Neutrophil # 8.76 X10^3/uL (2.7-7.7); Neutrophil % 69.2 % (47-70); Platelet Count 341 K/mm3 (150-450); RBC Distribution Width CV 13.6 % (11.6-14.6); RBC Distribution Width SD 42.5 fl (35.1-43.9); Red Blood Count 4.95 M/mm3 (4.2-5.4); White Blood Count 12.7 K/mm3 (4.4-11.0)
[2019-03-20 16:36] LABS: Thyroid Stim Hormone (TSH) 0.49 uIU/mL (0.358-3.74)
[2019-03-20 17:03] LABS: Amphetamine Urine VISTA NEGATIVE (<1000 ng/mL); Barbiturate Urine VISTA NEGATIVE (< 200 ng/mL); Benzodiazepine Urine VISTA NEGATIVE (< 200 ng/mL); Cocaine Urine VISTA NEGATIVE (< 300 ng/mL); Ecstacy Urine VISTA NEGATIVE (< 500 ng/mL); Methadone Urine VISTA NEGATIVE (< 300 ng/mL); PCP Urine VISTA NEGATIVE (< 25 ng/mL); THC Urine VISTA NEGATIVE (< 50 ng/mL); Vista UDS pH Range 7
[2019-03-21 10:47] LABS: HIV - WCH Non-Reactive (Nonreactive); Hepatitis B Surface Antigen Non-Reactive (Nonreactive); Hepatitis C Antibody Non-Reactive (Nonreactive); Rubella IgG 301.9 IU/mL
[2019-03-22 01:49] LABS: Prenatal RPR NONREACTIVE (NONREACTIVE)
== END ==
PROVIDERS: Visit Provider Obstetrics & Gynecology
DX: Z34.81 Encounter for supervision of other normal pregnancy, first trimester (principal)
CPT/HCPCS: 36415; 80307; 81002; 84443; 85025; 86703; 86762; 86803; 87340

== ENCOUNTER → 2019-04-27 09:09 | Outpatient (CLI) | payer BC, SELFPAY ==
[2019-04-27 10:47] LABS: Glucose Challenge Gest 1H 50g 94 mg/dL (70-140)
== END ==
PROVIDERS: Visit Provider Obstetrics & Gynecology
DX: Z34.81 Encounter for supervision of other normal pregnancy, first trimester (principal)
CPT/HCPCS: 36415; 82950

== ENCOUNTER → 2019-08-08 | Outpatient (CLI) | payer BC, SELFPAY ==
[2019-08-08 13:29] LABS: Hematocrit 36.1 % (37-47); Hemoglobin 11.2 g/dL (12.0-15.0); Mean Corpuscular Hgb 26.1 pg (27.0-32.0); Mean Corpuscular Volume 84.1 fL (81-99); Mean Platelet Vol. 10.9 fl (6.2-12.0); Platelet Count 268 K/mm3 (150-450); RBC Distribution Width CV 14.1 % (11.6-14.6); Red Blood Count 4.29 M/mm3 (4.2-5.4); White Blood Count 13.2 K/mm3 (4.4-11.0)
[2019-08-08 13:46] LABS: Glucose Challenge Gest 1H 50g 169 mg/dL (70-140)
== END | disposition home or self-care (01) ==
LOC: LABSPEC 12:37
PROVIDERS: Referring Provider Obstetrics & Gynecology; Visit Provider Obstetrics & Gynecology
DX: Z34.83 Encounter for supervision of other normal pregnancy, third trimester (principal)
CPT/HCPCS: 82950; 85027

== ENCOUNTER → 2019-08-10 06:49 | Outpatient (CLI) | payer BC, SELFPAY ==
[2019-08-10 07:34] LABS: Glucose GTT-Gestation. Fasting 107 mg/dL (<105)
[2019-08-10 08:45] LABS: Glucose GTT-Gestational 1 Hr 233 mg/dL (<190)
[2019-08-10 10:13] LABS: Glucose GTT-Gestational 2 Hr 195 mg/dL (<165)
[2019-08-10 11:07] LABS: Glucose GTT-Gestational 3 Hr 146 L (<145)
== END ==
PROVIDERS: PCP Family Medicine; Referring Provider Obstetrics & Gynecology; Visit Provider Obstetrics & Gynecology
DX: O24.912 Unspecified diabetes mellitus in pregnancy, second trimester (principal); Z3A.00 Weeks of gestation of pregnancy not specified
CPT/HCPCS: 36415; 82951; 82952

== ENCOUNTER → 2019-10-02 | Outpatient (CLI) | payer BC, SELFPAY | END | disposition home or self-care (01) | LOC: LABSPEC 10:55 | PROVIDERS: PCP Family Medicine; Visit Provider Obstetrics & Gynecology | DX: Z36.85 Encounter for antenatal screening for Streptococcus B (principal) | CPT/HCPCS: 87081 ==

== ENCOUNTER → 2019-10-05 | Outpatient (CLI) | payer BC, SELFPAY | END | disposition home or self-care (01) | LOC: LABSPEC 10:24 | PROVIDERS: PCP Family Medicine; Referring Provider Obstetrics & Gynecology; Visit Provider Obstetrics & Gynecology | DX: Z34.83 Encounter for supervision of other normal pregnancy, third trimester (principal) | CPT/HCPCS: 87635; G2023; U0003 ==

== ENCOUNTER 2019-10-10 05:23 | Inpatient (IN) | payer BC, SELFPAY ==
[2019-10-10] VITALS (20 sets, daily range): BP systolic 90–145; BP diastolic 52–85; PULSE 68–91; RESP 16–18; TEMP 36.4–36.8; O2SAT 98–100; BMI 38.9
[2019-10-10] MEDS: Acetaminophen 500 MG Tablet 1000 MG PO ×4 (06:17→23:15)
[2019-10-10] MEDS: Lactated Ringers 1,000 ML 999 ML IV (06:18)
[2019-10-10 06:30] LABS: Bedside Glucose 90 mg/dL (70-110)
--- NOTE | 2019-10-10 07:11 | PCM.HP.OB ---
- Problem List (1) 37 weeks gestation of Status: Acute (2) Gestational diabetes Status: Acute Qualifiers: Gestational diabetes mellitus control: oral hypoglycemic-controlled Trimester: third trimester Qualified Code(s): O24.415 - Gestational diabetes mellitus in , controlled by oral hypoglycemic drugs History Date of Admission: 10/10/19 Final MARYANN: 10/27/19 Final MARYANN Source: US <20 weeks Gestational age: 37 Weeks and 5 Days History of this : This is a 28 year-old, G [2], P [1], at 37 4/7 weeks gestational age with hx poorly controlled gestational DM presenting for scheduled repeat section. Medical History: Medical History (Last Updated 10/10/19 @ 07:[address] Aleida Valentine MD) Gestational diabetes mellitus O24.419 first and second pregnancies Allergies No Known Allergies Allergy (Verified 10/10/19 05:54) Home Medications: Home Medications Pnv No.95/Ferrous Fum/Folic AC [ Caplet] 1 ea PO DAILY 10/10/19 Ibuprofen [Motrin] 600 mg PO TID PRN #30 tab 10/11/19 Oxycodone [Oxyir] 1 tab PO Q6H PRN PRN 7 Days #20 tablet 10/11/19 Senna/Docusate Sodium [Senokot-S] 1 - 2 tab PO DAILY PRN #60 tab 10/11/19 Smoking Status: Former smoker Alcohol: None Number of Fetus(es): 1 NST - FHR Rate Baby A Baseline: 140 History Past Pregnancies: Past Pregnancies Delivery Date Name GA/ Weeks Outcome Route Wt Sex Labor Length Anesthesia Delivery Location Provider FOB 12/2017 Andrés 39 GDM, intrahepatic cholestasis, elective C/S, NICU x 1w C/S [id number] M 0 Spinal Prabhjot Philip Labs: Mom's Labs & Results 10/10/19 10/10/19 10/10/19 06:24 06:35 06:55 WBC Pending RBC Pending Hgb Pending Hct Pending MCV Pending MCH Pending MCHC Pending RDW Std Deviation Pending RDW Coeff of Anne Pending Plt Count Pending Neut % (Auto) Pending Absolute Neuts (auto) Pending POC Glucose 90 Blood Type Pending Antibody Screen Pending Course Did the patient receive Yes care? Labs Blood Type: O RH: POSITIVE RPR/VDRL/Syphilis Nonreactive Rubella status Immune HbSAg Negative Date Done: 03/20/19 Chlamydia Negative Gonorrhea Negative HIV/AIDS Non-Reactive Group B Strep: Negative Current Obstetrical History Gestational Diabetes Yes Incompetent Cervix No Infertility No IUGR No Macrosomia No Hypertension/Pre-eclampsia No Placenta Previa/Abruption No PTL/PROM No Uterine anomaly No Oligohydramnios No Polyhydramnios No Multiple gestation No Past Medical History Asthma Yes: childhood Diabetes No Hypertension No Heart disease No Mitral valve prolapse No Neurologic/Seizure disorder/ No Migraines Kidney disease No Liver disease No Varicosities No Clotting disorders/Hx of DVT No Thyroid Dysfunction No Other medical diseases No Psychiatric disorders No Major trauma No Abnormal PAP smear No Sleep apnea Yes: as a baby Mammogram in the last 2 years No Social History Marital Status: Alleged father Philip Hx Smoking No Smoking Status Former smoker Expected Delivery Method: Scheduled Section Number of Visits: 13 Review of Systems Constitutional: Denies: Fever Cardiovascular: Denies: Edema Respiratory: Denies: Cough, Shortness of Breath Gastrointestinal: Denies: Abdominal Pain Gynecological: Reports: - - No contractions or leaking of fluid. Denies: Vaginal bleeding Physical Exam Vitals: AVSS General: Alert, Oriented x3, Cooperative, No apparent distress HEENT: Atraumatic, Normocephalic Cardiovascular: Regular rate, Regular Rhythm, Normal S1, Normal S2 Lungs: Clear to auscultation, Normal air movement, No rhonchi, No wheeze, No rales Abdomen: Soft, Non Tender, Non-Distended, Gravid Extremities:: No tenderness/swelling Neurological: Neuro grossly intact Estimated gestational size: Appropriate for gestational size Presentation: Cephalic Assessment/Plan All Active Problems (Last Updated 10/10/19 @ 07:[address] Aleida Valentine MD) 37 weeks gestation of (Acute) Gestational diabetes (Acute) This is a 28 year-old, G [2], P [1], at 37 4/7 weeks gestational age. hx GDM - fasting blood sugar 90 Proceed with repeat section as planned. Procedure Criteria Procedure Type: Elective COVID Risk Discussion: The surgeon/proceduralist and patient have discussed in detail the risk of exposure to and/or potential harm posed by the COVID-19 virus with having a surgery/procedure at this time versus the risk of delaying the surgery/procedure. It is not possible to know either the risk of delaying the surgery or procedure or chance of getting an infection with perfect accuracy, but a joint decision was made between the patient and the surgeon/proceduralist to proceed at this time with the scheduled surgery/procedure as indicated on the consent form.
[2019-10-10] MEDS: Sodium Citrate/Citric Acid 30 ML UDC PO (07:14)
[2019-10-10] MEDS: Lactated Ringers 1,000 ML 150 ML IV (07:15)
[2019-10-10] MEDS: Cefazolin 2 GM in 0.9% Normal Saline 100 ML IV (07:22)
[2019-10-10 07:56] LABS: Absolute Lymphocyte Count 2.37 X10^3/uL (0.83-4.51); Absolute Neutrophil Count 9.8 X10^3/uL (2.0-7.7); Basophil# 0.03 X10^3/uL; Basophil% 0.2 % (0-1); Eosinophil# 0.06 X10^3/uL; Eosinophils% 0.5 % (0-5); Hematocrit 36.9 % (37-47); Hemoglobin 11.2 g/dL (12.0-15.0); Lymphocyte # 2.37 X10^3/ul (4.0); Mean Corp Hgb Conc 30.4 g/dL (32-36); Mean Corpuscular Hgb 24.7 pg (27.0-32.0); Mean Corpuscular Volume 81.3 fL (81-99); Mean Platelet Vol. 11.4 fl (6.2-12.0); Monocyte# 0.77 X10^3/uL; Monocyte% 5.9 % (0-10); NRBC Flagged by Analyzer 0 % (0-5); Neutrophil # 9.81 X10^3/uL (2.7-7.7); Neutrophil % 74.6 % (47-70); Platelet Count 279 K/mm3 (150-450); RBC Distribution Width CV 15.4 % (11.6-14.6); RBC Distribution Width SD 44.9 fl (35.1-43.9); Red Blood Count 4.54 M/mm3 (4.2-5.4); White Blood Count 13.2 K/mm3 (4.4-11.0)
--- NOTE | 2019-10-10 08:44 | OP.PCM_ITS ---
Problem List (1) 37 weeks gestation of Status: Acute (2) Gestational diabetes Status: Acute Qualifiers: Gestational diabetes mellitus control: oral hypoglycemic-controlled Trimester: third trimester Qualified Code(s): O24.415 - Gestational diabetes mellitus in , controlled by oral hypoglycemic drugs Delivery Classification: Scheduled Final MARYANN: 10/27/19 Final MARYANN Source: US <20 weeks Gestational age: 37 Weeks and 4 Days financial planning consultant: Kiara Haley Type of Anesthesia:: Spinal Date of Procedure: 10/10/19 Pre-Operative Diagnosis: 37 4/7 weeks gestation. Gestational Diabetes mellitus Post-Operative Diagnosis: 37 4/7 weeks gestation. Gestational diabetes mellitus Indications: 28-year-old 2 para 1-0-0-1 admitted at 37-4/7 weeks gestational age for scheduled repeat section with a history of gestational diabetes with suboptimal control on oral hypoglycemic. Indications for : Repeat Elective Description of Procedure: The patient was taken to the operating room and spinal analgesia was administered. She is placed in a dorsal supine position with left lateral tilt. The perineum and abdomen were prepped and draped in sterile fashion. And the spinal was found to be adequate. A Pfannenstiel incision was made using a scalpel and brought down to incise the subcutaneous tissue and rectus fascia at the midline. Subcutaneous tissue was bluntly dissected off the fascia laterally. The fascial incision was dissected laterally and cephalad using curved Almaguer scissors. The superior leaflet of the rectus fascia was grasped using Bobby clamps and bluntly dissected and sharply dissected from the un derlying rectus muscle. In a similar fashion the inferior rectus fascia was dissected from the underlying muscle. The rectus muscles were bluntly at the midline. The peritoneum was identified and entered [sharply]. The bladder blade was placed into the abdomen and the vesicouterine peritoneal fold identified. The fold was incised and a bladder flap created. Bladder blade was then repositioned to the abdomen. A low transverse hysterotomy was made using the [Metzenbaum scissors] to level of the membranes. The hysterotomy was extended bluntly cephalad and caudad. The membranes were then ruptured revealing clear fluid. The head was elevated and brought to the level of the hysterotomy and the infant delivered revealing vigorous [male] . The cord was doubly clamped and cut after 30 seconds. The was passed to awaiting [nursery personnel]. The placenta was [expressed] from the uterus and appeared intact on inspection. The uterus was cleared of debris. The hysterotomy was then repaired using 0 Vicryl running lock suture. A second imbricating layer was also placed for additional hemostasis. The bladder blade was removed. The anterior cul-de-sac was cleared of debris. The peritoneum and rectus muscles were reapproximated using 2-0 Vicryl running suture. The rectus fascia was closed using 0 Stratafix suture. The subcutaneous tissue was reapp roximated using 2-0 Vicryl. The skin was closed using 4-0 Monocryl subcuticularly by the COMMERCIAL LOAN ANALYST under my supervision. A silver Mepilex occlusive dressing was placed over the incision. The fundus was firm. The patient was then transferred to the recovery room without complication. Sponge, instrument, and needle counts were correct ?2. Amniotic Membrane Rupture Type: Artificial Amniotic Fluid Description: Clear Placenta Disposition: [facility] Drain: Bueno to straight drain Fluids Replaced: 1000 ml Cord Entanglement: None Nuchal Cord Compression: Without compression Cord Vessel Description: 3 Vessels Esitmated Blood Loss (ml): 975 Infant Gender: Male (1 minute): 9 (5 minute): 9 Delayed cord clamping: Yes Antibiotic Given: Ancef 2 grams IV x1 Pt instructed on risks of surgery: Bleeding, Anesthesia Risks, Infection, Need for Future C-Sections, Injury to surrounding structure(s) including bowel and bladder Complications: None - Admit VTE Documentation VTE Present on Admission: No VTE Mechan Device Prophylaxis: SCD's VTE Pharm Prophylaxis ordered?: No
[2019-10-10] MEDS: Oxytocin 30 units/NS 500 ml 30 UNITS/500 ML IV.SOLN 167 UNITS IV (09:10)
[2019-10-10 10:01] LABS: Bedside Glucose 123 mg/dL (70-110)
[2019-10-10] MEDS: Senna/Docusate Sodium 1 Tablet PO (12:16)
[2019-10-10] MEDS: Lactated Ringers 1,000 ML 100 ML IV (12:55)
[2019-10-10] MEDS: Ketorolac 30 MG/ML Syringe IV ×2 (14:16→20:47)
[2019-10-10] MEDS: 0.9% Saline Lock 10 ML Syringe IV ×3 (14:16→20:47)
[2019-10-10] MEDS: Heparin Injection (Vial) 5,000 UNIT/ML VIAL 5000 UNIT SC (17:00)
[2019-10-11] MEDS: Ketorolac 30 MG/ML Syringe IV ×2 (03:10→08:06)
[2019-10-11] MEDS: 0.9% Saline Lock 10 ML Syringe IV ×2 (03:10→08:05)
[2019-10-11 04:41] VITALS: BP 100/49; PULSE 73; RESP 18; TEMP 36.7; O2SAT 97
[2019-10-11] MEDS: Heparin Injection (Vial) 5,000 UNIT/ML VIAL 5000 UNIT SC ×2 (04:45→16:55)
[2019-10-11 05:24] LABS: Hematocrit 36.9 % (37-47); Hemoglobin 11.2 g/dL (12.0-15.0); Mean Corp Hgb Conc 30.4 g/dL (32-36); Mean Corpuscular Hgb 25.2 pg (27.0-32.0); Mean Corpuscular Volume 82.9 fL (81-99); Mean Platelet Vol. 10.6 fl (6.2-12.0); Platelet Count 261 K/mm3 (150-450); RBC Distribution Width CV 15.8 % (11.6-14.6); RBC Distribution Width SD 46.8 fl (35.1-43.9); Red Blood Count 4.45 M/mm3 (4.2-5.4); White Blood Count 13.4 K/mm3 (4.4-11.0)
[2019-10-11] MEDS: Acetaminophen 500 MG Tablet 1000 MG PO ×4 (06:30→23:41)
[2019-10-11 06:46] LABS: Bedside Glucose 86 mg/dL (70-110)
[2019-10-11] MEDS: Senna/Docusate Sodium 1 Tablet PO (08:06)
[2019-10-11 08:15] VITALS: BP 115/66; PULSE 83; RESP 16; TEMP 36.6
--- NOTE | 2019-10-11 09:34 | PN.OBGYN_ITS ---
Patient Problems: Active and Suspected Problems (Last Updated 10/10/19 @ 07:[address] Aleida Valentine MD) 37 weeks gestation of (Acute) Subjective: No issues overnight. Passing flatus. Tolerates PO without nausea. Voiding without difficulty. Pain controlled. OOB. nursing well. Objective: AVSS - Physical Exam Vitals/I&O's: Vital Signs Temp Pulse Resp BP Pulse Ox 97.8 F 83 16 115/66 97 10/11/19 08:15 10/11/19 08:15 10/11/19 08:15 10/11/19 08:15 10/11/19 04:41 Oxygen Delivery Method Room Air Weight: 87.543 kg Body Mass Index (BMI) 38.9 Intake and Output for Last 24 Hours 10/09/19 10/10/19 10/11/19 23:59 23:59 23:59 Intake Total 3135.83 / 3135.83 Output Total 1325 / 1325 350 / 350 Balance 1810.83 / 1810.83 -350 / -350 General: Alert, Oriented x3, Cooperative, No apparent distress HEENT: Atraumatic, Normocephalic Lungs: Clear to auscultation, Normal air movement Cardiovascular: Regular rate, Regular Rhythm, Normal S1, Normal S2 Abdomen: Soft, Non Tender, Non-Distended, - - Fundus firm and nontender, lochia scant, incisional dressing c/d/i Extremities: No edema, No Calf Tenderness Neurological: Neuro grossly intact Psych/Mental Status: Normal Affect, Appropriate, Alert and oriented to time, place, person, mood and affect Laboratory Results 10/10/19 09:47: POC Glucose 123 H 10/11/19 05:17: WBC 13.4 H, RBC 4.45, Hgb 11.2 L, Hct 36.9 L, MCV 82.9, MCH 25.2 L, MCHC 30.4 L, RDW Std Deviation 46.8 H, RDW Coeff of Anne 15.8 H, Plt Count 261, MPV 10.6 10/11/19 06:36: POC Glucose 86 Current Medications Acetaminophen (Tylenol) 1,000 mg PO Q6 [facility] Last Admin: 10/11/19 06:30 Dose: 1,000 mg Documented by: Bisacodyl (Dulcolax) 10 mg RECTAL UD PRN PRN Reason: If no BM Heparin Sodium (Porcine) (Heparin Na) 5,000 unit SC Q12H [facility] Last Admin: 10/11/19 04:45 Dose: 5,000 unit Documented by: Hydrocortisone (Hytone) 1 applic TOPICAL TID PRN PRN; Protocol PRN Reason: Discomfort Naloxone HCl 4 mg/ Dextrose 504 mls @ 0 mls/hr IV .Q0M PRN; Protocol PRN Reason: Respiratory depression Ibuprofen (Motrin) 600 mg PO Q6H [facility] Methylergonovine Maleate (Methergine) 0.2 mg IM X1 PRN PRN Reason: Uterine Atony Naloxone HCl (Narcan) 0.02 mg IV Q1M PRN PRN Reason: RR <10 and pt unresponsive Ondansetron HCl (Zofran) 4 mg IV Q4H PRN PRN PRN Reason: Nausea Oxycodone HCl (Oxyir) 5 - 10 mg PO Q4H PRN PRN PRN Reason: Pain Score 4-10/10 Prochlorperazine Edisylate (Compazine Iv) 10 mg IV Q6H PRN PRN PRN Reason: NAUSEA Senna/Docusate Sodium (Senokot-S, Payton-Colace) 0 tablet PO DAILY [facility] Last Admin: 10/11/19 08:06 Dose: 1 tablet Documented by: Simethicone (Mylicon) 80 mg PO PCHS PRN PRN Reason: Indigestion/stomach pain Sodium Chloride () 5 - 15 ml IV UD PRN PRN Reason: SALINE FLUSH Last Admin: 10/11/19 08:05 Dose: 10 ml Documented by: Medical Necessity - Tobacco Use Smoking Status: Former smoker Assessment/Plan All Active Problems (Last Updated 10/10/19 @ 07:[address] Aleida Valentine MD) 37 weeks gestation of (Acute) Gestational diabetes (Acute) This is a 28 year-old, G [2], P [2002], POD#1 s/p RLTCS doing well. -Routine postop care -hx GDM, fasting FS 86, no further. Reviewed DM screening at 6-12 weeks -Rh positive -
--- NOTE | 2019-10-11 09:43 | DCINST_ITS ---
Discharge Diet: No Restrictions Discharge Activity: Return to Normal Activity, May not drive while taking narcotic pain medications., May Shower, May Take a Tub Bath May resume sexual activity in: 4-6 weeks Lifting Restrictions: 10-20 lb Call your doctor if your incision/area has: Continuous Slow Oozing, Sudden Increased Bleeding, Increased Pain/ Swelling, Increased Redness, Foul Smelling Discharge Call your doctor if you observe: Fever of 101 or Higher, Inability to urinate, Inability to have a bowel movement, Using more than one pad per hour, Shortness of breath, Chest pain, Calf discomfort, Uncontrolled pain Suture Line Care: Avoid Pulling/Pushing Remove Dressing in (days):: 3 Cleanse incision/area with: Soap & Water Additional Instructions: If you experience any of the following, contact your healthcare provider. * Bleeding that soaks a pad every hour for 2 hours * Fever 100.4 or higher * Unrelieved incision or abdominal pain * Swelling, redness, discharge or bleeding from your incision or episiotomy site * Your incision begins to separate * Problems urinating (including inability to urinate or burning while urinating). * Visual changes * Severe headache * Flu-like symptoms * Pain or redness in one of both of your breasts * Pain, warmth, tenderness or swelling in your legs, especially the calf area * Frequent nausea and vomiting * Symptoms of depression or anxiety If you experience any of the following, call 911 or go to the nearest Emergency Room. * Chest pain * Problems breathing * Seizure activity * Partial or complete paralysis of a body part, slurred speech, weakness or drooping of the face, or a sudden inability to walk or hold your balance Allergies/Adverse Reactions: Allergies No Known Allergies Allergy (Verified 10/10/19 05:54) Medications to take at Discharge Pnv No.95/Ferrous Fum/Folic AC [ Caplet] 1 ea PO DAILY 10/10/19 Ibuprofen [Motrin] 600 mg PO TID PRN #30 tab 10/11/19 Oxycodone [Oxyir] 1 tab PO Q6H PRN PRN 7 Days #20 tablet 10/11/19 Senna/Docusate Sodium [Senokot-S] 1 - 2 tab PO DAILY PRN #60 tab 10/11/19 The following prescriptions were given: Ibuprofen [Motrin] 600 mg PO TID PRN #30 tab PRN Reason: pain Transmission Status: Pending to [facility] Oxycodone [Oxyir] 1 tab PO Q6H PRN PRN 7 Days #20 tablet PRN Reason: Pain Score 6-10/10 Transmission Status: Sent to [facility] Senna/Docusate Sodium [Senokot-S] 1 - 2 tab PO DAILY PRN #60 tab PRN Reason: Constipation Transmission Status: Pending to [facility] Follow-Up: Call to make an appointment with your doctor for an incision check in 1-2 weeks. You will also need a 6 week post- follow up appointment. Test results from this visit will be discussed in further detail at your follow- up appointment, if applicable. Please Follow Up With: Aleida Burnett MD When: 1-2 weeks Primary Care Physician: Uvaldo Michel MD [Primary Care Provider] -
[2019-10-11] MEDS: Ibuprofen 600 MG Tablet PO ×3 (12:17→23:42)
[2019-10-11 14:00] VITALS: BP 105/58; PULSE 91; RESP 16; TEMP 36.8
[2019-10-11 20:18] VITALS: BP 107/53; PULSE 85; RESP 18; TEMP 36.9; O2SAT 98
[2019-10-12 01:58] VITALS: BP 124/74; PULSE 80; RESP 17; TEMP 36.8
[2019-10-12] MEDS: Heparin Injection (Vial) 5,000 UNIT/ML VIAL 5000 UNIT SC (04:22)
[2019-10-12] MEDS: Acetaminophen 500 MG Tablet 1000 MG PO (06:38)
[2019-10-12] MEDS: Ibuprofen 600 MG Tablet PO (06:38)
--- NOTE | 2019-10-12 06:47 | NURSING ---
This RN in room and pt. reported bleeding and cracking from left nipple. This RN assessed and blood blister noted.
--- NOTE | 2019-10-12 07:34 | PCM.PN.OB ---
Patient Problems: Active and Suspected Problems (Last Updated 10/10/19 @ 07:[address] Aleida Valentine MD) 37 weeks gestation of (Acute) Subjective: No issues overnight, passing flatus, no bowel movement yet. Voiding without difficulty. Tolerates p.o. Continues breast-feeding. Reports last cracked nipple. Desires discharge home today. Denies heavy lochia. Objective: AVSS - Physical Exam Vitals/I&O's: Vital Signs Temp Pulse Resp BP Pulse Ox 98.2 F 80 17 124/74 H 98 10/12/19 01:58 10/12/19 01:58 10/12/19 01:58 10/12/19 01:58 10/11/19 20:18 Oxygen Delivery Method Room Air Weight: 87.543 kg Body Mass Index (BMI) 38.9 Intake and Output for Last 24 Hours 10/10/19 10/11/19 10/12/19 23:59 23:59 23:59 Intake Total 3135.83 / 3135.83 Output Total 1325 / 1325 350 / 350 Balance 1810.83 / 1810.83 -350 / -350 General: Alert, Oriented x3, Cooperative, No apparent distress HEENT: Atraumatic, Normocephalic Lungs: Clear to auscultation, Normal air movement Cardiovascular: Regular rate, Regular Rhythm, Normal S1, Normal S2 Abdomen: Soft, Non Tender, Non-Distended, - - Fundus firm nontender, incisional dressing clean dry and intact Extremities: No Calf Tenderness, - - Trace lower extremity edema bilaterally Neurological: Neuro grossly intact Psych/Mental Status: Normal Affect, Appropriate, Alert and oriented to time, place, person, mood and affect Current Medications Acetaminophen (Tylenol) 1,000 mg PO Q6 [facility] Last Admin: 10/12/19 06:38 Dose: 1,000 mg Documented by: Bisacodyl (Dulcolax) 10 mg RECTAL UD PRN PRN Reason: If no BM Heparin Sodium (Porcine) (Heparin Na) 5,000 unit SC Q12H [facility] Last Admin: 10/12/19 04:22 Dose: 5,000 unit Documented by: Hydrocortisone (Hytone) 1 applic TOPICAL TID PRN PRN; Protocol PRN Reason: Discomfort Naloxone HCl 4 mg/ Dextrose 504 mls @ 0 mls/hr IV .Q0M PRN; Protocol PRN Reason: Respiratory depression Ibuprofen (Motrin) 600 mg PO Q6H [facility] Last Admin: 10/12/19 06:38 Dose: 600 mg Documented by: Methylergonovine Maleate (Methergine) 0.2 mg IM X1 PRN PRN Reason: Uterine Atony Naloxone HCl (Narcan) 0.02 mg IV Q1M PRN PRN Reason: RR <10 and pt unresponsive Ondansetron HCl (Zofran) 4 mg IV Q4H PRN PRN PRN Reason: Nausea Oxycodone HCl (Oxyir) 5 - 10 mg PO Q4H PRN PRN PRN Reason: Pain Score 4-10/10 Prochlorperazine Edisylate (Compazine Iv) 10 mg IV Q6H PRN PRN PRN Reason: NAUSEA Senna/Docusate Sodium (Senokot-S, Payton-Colace) 0 tablet PO DAILY [facility] Last Admin: 10/11/19 08:06 Dose: 1 tablet Documented by: Simethicone (Mylicon) 80 mg PO PCHS PRN PRN Reason: Indigestion/stomach pain Sodium Chloride () 5 - 15 ml IV UD PRN PRN Reason: SALINE FLUSH Last Admin: 10/11/19 08:05 Dose: 10 ml Documented by: Medical Necessity - Tobacco Use Smoking Status: Former smoker Assessment/Plan All Active Problems (Last Updated 10/10/19 @ 07:[address] Aleida Valentine MD) 37 weeks gestation of (Acute) Gestational diabetes (Acute) This is a 28 year-old, G [2], P [2] POD#2 s/p RLTCS doing well. Rh+ consultation Routine postop care Plan for DC home later today
[2019-10-12 08:10] VITALS: BP 118/68; PULSE 80; RESP 14; TEMP 36.6
[2019-10-12] MEDS: Senna/Docusate Sodium 1 Tablet PO (09:53)
== END 2019-10-12 11:30 | disposition home or self-care (01) | DRG 788 ==
PROVIDERS: Admitting Provider Obstetrics & Gynecology; PCP Family Medicine; Referring Provider Obstetrics & Gynecology; Visit Provider Obstetrics & Gynecology
PROC: 10D00Z1 Extraction of Products of Conception, Low, Open Approach (ICD-10-PCS; CPT 59514; principal; 2019-10-10 07:15)
DX: O34.219 Maternal care for unspecified type scar from previous cesarean delivery (principal); Z3A.37 37 weeks gestation of pregnancy; Z37.0 Single live birth; Z87.891 Personal history of nicotine dependence; O24.425 Gestational diabetes mellitus in childbirth, controlled by oral hypoglycemic drugs; N64.0 Fissure and fistula of nipple
CPT/HCPCS: 82962; 85025; 85027; 86850; 86900; 86901; 99218; J7120; A4216; G0378; J2405

== ENCOUNTER → 2020-12-03 12:19 | Outpatient (CLI) | payer BC, SELFPAY ==
[2020-12-03 15:57] LABS: Probe Check PASS; Specimen Processing Control PASS
== END ==
PROVIDERS: PCP Family Medicine; Referring Provider Obstetrics & Gynecology; Visit Provider Obstetrics & Gynecology
DX: Z20.828 Contact with and (suspected) exposure to other viral communicable diseases (principal)
CPT/HCPCS: 87635; C9803; U0005; U0003

== ENCOUNTER → 2020-12-10 | Outpatient (CLI) | payer BC, SELFPAY ==
[2020-12-10 15:05] LABS: Color, Urine Yellow (Yellow); Glucose, Dipstick Normal (Normal); Ketone-Dipstick Negative (Negative); Leukocyte Esterase-Dipstick Negative /ul (Negative); Nitrite-Dipstick Negative (Negative); Occult Blood-Urine Negative /ul (Negative); Protein-Dipstick Negative (Negative); Urine Bilirubin Dipstick Negative (Negative); Urine Clarity Clear (Clear); Urine Urobilinogen Normal (Normal); Urine pH 6.5 (5.0 - 8.0)
[2020-12-10 15:07] LABS: Absolute Lymphocyte Count 2.57 X10^3/uL (0.83-4.51); Absolute Neutrophil Count 6.9 X10^3/uL (2.0-7.7); Basophil# 0.03 X10^3/uL; Basophil% 0.3 % (0-1); Eosinophil# 0.09 X10^3/uL; Eosinophils% 0.9 % (0-5); Hematocrit 40.1 % (37-47); Lymphocyte # 2.57 X10^3/ul (0.83-4.51); Lymphocyte % 24.9 % (19-41); Mean Corp Hgb Conc 32.4 g/dL (32-36); Mean Corpuscular Hgb 27.1 pg (27.0-32.0); Mean Corpuscular Volume 83.5 fL (81-99); Mean Platelet Vol. 10.8 fl (6.2-12.0); Monocyte# 0.66 X10^3/uL; Monocyte% 6.4 % (0-10); NRBC Flagged by Analyzer 0 % (0-5); Neutrophil # 6.91 X10^3/uL (2.7-7.7); Neutrophil % 66.9 % (47-70); Platelet Count 308 K/mm3 (150-450); RBC Distribution Width CV 14.6 % (11.6-14.6); RBC Distribution Width SD 44.7 fl (35.1-43.9); White Blood Count 10.3 K/mm3 (4.4-11.0)
[2020-12-10 15:27] LABS: Amphetamine Urine VISTA NEGATIVE (<1000 ng/mL); Barbiturate Urine VISTA NEGATIVE (< 200 ng/mL); Benzodiazepine Urine VISTA NEGATIVE (< 200 ng/mL); Cocaine Urine VISTA NEGATIVE (< 300 ng/mL); Ecstacy Urine VISTA NEGATIVE (< 500 ng/mL); Methadone Urine VISTA NEGATIVE (< 300 ng/mL); PCP Urine VISTA NEGATIVE (< 25 ng/mL); THC Urine VISTA NEGATIVE (< 50 ng/mL); Vista UDS pH Range 6
[2020-12-10 15:28] LABS: Thyroid Stim Hormone (TSH) 0.53 uIU/mL (0.358-3.74)
[2020-12-11 10:10] LABS: HIV - WCH Non-Reactive (Nonreactive); Hepatitis B Surface Antigen Non-Reactive (Nonreactive); Hepatitis C Antibody Non-Reactive (Nonreactive); Rubella IgG Reactive (Nonreactive); Syphilis Antibodies Non-reactive
[2020-12-12 09:55] LABS: Hemoglobin A1c 5.5 % (3.8-5.6)
[2020-12-13 03:06] LABS: Chlamydia By Nucleic Acid AMP Negative (Negative)
[2020-12-13 07:20] LABS: Gonococcus By Nucleic Acid AMP Negative (Negative)
== END | disposition home or self-care (01) ==
LOC: LABSPEC 13:34
PROVIDERS: PCP Family Medicine; Visit Provider Obstetrics & Gynecology
DX: Z32.01 Encounter for pregnancy test, result positive (principal); Z12.4 Encounter for screening for malignant neoplasm of cervix; Z11.3 Encounter for screening for infections with a predominantly sexual mode of transmission
CPT/HCPCS: 36415; 80307; 81002; 83036; 84443; 85025; 86703; 86762; 86780; 86803; 87086; 87340; 87491; 87591

== ENCOUNTER → 2021-02-03 08:58 | Outpatient (CLI) | payer BC, SELFPAY ==
[2021-02-03 10:17] LABS: Glucose Challenge Gest 1H 50g 159 mg/dL (70-140)
== END ==
PROVIDERS: PCP Family Medicine; Visit Provider Obstetrics & Gynecology
DX: Z34.82 Encounter for supervision of other normal pregnancy, second trimester (principal)
CPT/HCPCS: 36415; 82950

== ENCOUNTER → 2021-03-18 16:38 | Outpatient (CLI) | payer BC, SELFPAY | PROVIDERS: PCP Family Medicine; Visit Provider Obstetrics & Gynecology | DX: Z34.82 Encounter for supervision of other normal pregnancy, second trimester (principal) | CPT/HCPCS: 36415 ==

== ENCOUNTER 2021-06-19 13:55 | Outpatient (CLI) | payer BC, SELFPAY | END 2021-06-19 23:59 | disposition home or self-care (01) | LOC: LABSPEC 13:57 | PROVIDERS: PCP Family Medicine; Visit Provider Obstetrics & Gynecology | DX: Z36.85 Encounter for antenatal screening for Streptococcus B (principal) | CPT/HCPCS: 87081 ==

== ENCOUNTER 2021-07-01 05:03 | Inpatient (IN) | payer BC, SELFPAY ==
[2021-07-01] VITALS (19 sets, daily range): BP systolic 54–126; BP diastolic 19–74; PULSE 69–94; RESP 16; TEMP 35.9–36.7; O2SAT 97–100; BMI 43.7
--- NOTE | 2021-07-01 | FALS_PTH ---
PATIENT: LEEANNE WINSLOW LOC: [facility] U#:[id number] AGE/SX: 30/F ROOM: WP004 RE07/01/[address]: Dr. Aleida Valentine MD : 1990 BED: 1 DIS: 07/03/2021 SPEC #: [id number] RECD: 07/01/21 10:44 STATUS: GENARO REShira #: [id number] DHAVAL: 07/01/21 00:[address]: Aledia Walker DEPT: SURGICAL PATHOLOGY RECD BY: Jose Michel ENTERED: 07/01/21 10:45 SP TYPE: FALL TUBES OTHR DR: Dr. Uvaldo Michel MD Tissues: Fallopian tube Procedures: Surgery Specimen Level II HEADER OPERATION: Tubal ligation PRE-OP DIAGNOSIS: Sterilization TISSUE SUBMITTED: Fallopian tubes MICROSCOPIC DIAGNOSIS Bilateral fallopian tubes, salpingectomy: Bilateral fallopian tubes, no pathologic diagnosis. WINNIE:amrita 07/02/2021 MICROSCOPIC DESCRIPTION Slides are reviewed. GROSS DESCRIPTION Received in fixative is one container labeled with the patient's name and designated bilateral fallopian tubes. The specimen consists of two fallopian tubes, one with suture, with an average length of 6.5 cm and has an average diameter of 0.8 cm. Both fallopian tubes have normal fimbriated ends. No mass lesions are identified. [employer] sections are submitted in two cassettes as follows: 1 - fallopian tube with suture, 2 - fallopian tube without suture. / AM:amrita 07/01/2021 TC:4 CPT: 73313 x2
[2021-07-01] MEDS: Lactated Ringers 1,000 ML 999 ML IV (05:25)
[2021-07-01] MEDS: Acetaminophen 500 MG Tablet 1000 MG PO ×3 (05:44→17:57)
[2021-07-01 05:46] LABS: Absolute Lymphocyte Count 2.17 X10^3/uL (0.83-4.51); Absolute Neutrophil Count 6.5 X10^3/uL (2.0-7.7); Basophil# 0.04 X10^3/uL; Basophil% 0.4 % (0-1); Eosinophil# 0.07 X10^3/uL; Eosinophils% 0.7 % (0-5); Hematocrit 34.8 % (37-47); Hemoglobin 10.9 g/dL (12.0-15.0); Lymphocyte # 2.17 X10^3/ul (0.83-4.51); Lymphocyte % 23.1 % (19-41); Mean Corp Hgb Conc 31.3 g/dL (32-36); Mean Corpuscular Hgb 24.5 pg (27.0-32.0); Mean Corpuscular Volume 78.4 fL (81-99); Mean Platelet Vol. 11.8 fl (6.2-12.0); Monocyte# 0.61 X10^3/uL; Monocyte% 6.5 % (0-10); NRBC Flagged by Analyzer 0 % (0-5); Neutrophil # 6.46 X10^3/uL (2.7-7.7); Neutrophil % 68.8 % (47-70); Platelet Count 213 K/mm3 (150-450); RBC Distribution Width CV 15.3 % (11.6-14.6); Red Blood Count 4.44 M/mm3 (4.2-5.4); White Blood Count 9.4 K/mm3 (4.4-11.0)
--- NOTE | 2021-07-01 05:52 | PCM.HP.OB ---
HPI - General General Date of Admission: 07/01/21 HPI Narrative SELENA WINSLOW, is a 30 F who presents for scheduled repeat , bilateral salpingectomy at 37 6/7wga. OB PROBLEM LIST: COVID positive , 02/2021 Denies depression hx, but has some increased anxiety. GDMA2 H/O UTI Plans to breastfeed Prior C/S x 2. Repeat C/S planned. Also wants a BTL. Quit smoking, states it was only occasional prior to quitting Maternal Data Information MARYANN Calculator Estimated Delivery Date Method Current WG Current Estimate 07/16/21 LMP (Certain) 37w 6d PFSH PFS Medical History (Updated 07/01/21 @ 06:[address] Aleida Valentine MD) COVID-19 affecting in second trimester Gestational diabetes mellitus Home Medications PNV cmb#95-ferrous fumarate-FA 1 ea PO DAILY 10/10/19 [History Last Taken 06/30/21] insulin detemir U-100 [Levemir FlexTouch U-100 Insuln] 40 unit SUBCUT DAILY 07/01/21 [History Last Taken 06/30/21 09:00] insulin detemir U-100 [Levemir FlexTouch U-100 Insuln] 50 unit SUBCUT QHS 07/01/21 [History Last Taken 06/30/21 21:15] Allergy/AdvReac Type Severity Reaction Status Date / Time No Known Allergies Allergy Verified 10/10/19 05:54 Family History (Updated 07/01/21 @ 05:42 by Saige Fang) Mother Diabetes Surgical History (Updated 07/01/21 @ 06:[address] Aleida Valentine MD) H/O breast augmentation History of tonsillectomy Previous section Social History Smoking Status: Former smoker History 3 Elective abortions Hx Para 2 Spontaneous abortions Hx # Term Pregnancies 2 Ectopic pregnancies Hx # Pregnancies Multiple births # of living children 2 Past Pregnancies Del. Date Name GA/Weeks Outcome Route Bth Weight Gen Labor Lgth Anesthesia Del Locatn Provider FOB 01/02/18 Andrés 39 live - full term 8lb 12oz Male spinal [facility] Maria Fernanda Palacios 10/10/19 Glaser 37 live - full term 7lb 12oz Male spinal [facility] Kajal Palacios Delivery Date: 01/02/18 GDM, elective RdzSerge Delivery Date: 10/10/19 GDM RdzSerge NST FHR Rate Baby A Baseline: 130 Variability:: Moderate Accelerations:: 15 x 15 Decelerations:: None NST Reactive:: Yes FHR Category:: Category I Uterine Activity:: 1-05/21 Vital Signs Vital Signs Vital Signs: Weight Weight: 98.2 kg Body Mass Index (BMI) 43.7 Physical Exam Const alert, oriented x3 and no apparent distress HEENT normocephalic Resp normal respiratory effort, normal air movement and clear to auscultation bilaterally Cardio regular rate and regular rhythm GI normal to inspection, nondistended, normoactive bowel sounds, soft to palpation, non-tender and non-distended Inspection: gravid Labs Labs Labs: Blood Type O POSITIVE Antibody Screen NEGATIVE Hct 34.8 % (37-47) L Hgb 10.9 g/dL (12.0-15.0) L Syphilis Total Ab Non-reactive Rubella IgG Antibody Reactive (Nonreactive) Hep Bs Antigen Non-Reactive (Nonreactive) Chlamydia DNA (RENE) Negative (Negative) Neisseria gonorrhoeae DNA (RENE) Negative (Negative) HIV 1&2 Antibody Non-Reactive (Nonreactive) Glucose 1 Hr 50 gm 159 mg/dL (70-140) H Group B Strep DNA Negative (Negative) Rhogam given: No Miscellaneous Test Antepartum Flow Sheet Highlights: SHM Jun 10 37 214 124/78 tr - SHM Jun 09 36 213 126/94 tr - 37 SHM Jun 09 36 215 128/80 tr - 36 V SHM 03 Jun 2 35 213 130/80 tr ne 36 V SHM May 2 33 210 128/74 tr - 33 V SHM May 13 31 206 134/82 tr - 31 V SHM Apr 12 29 206 106/80 - 1+ 29 ? SHM Apr 12 27 201 120/70 tr - 27 JM Mar 14 22 199 142/82 ne ne - - Jan 12 16 196 108/70 tr 2+ - - SHM Dec 13 12 194 90/60 tr - SHORT ANTEPARTUM NOTE(S): Jun pelvic pressure, discomfort Jun slowed FM, back pain, pelvic pressure Jun GBS today Jun See Note, May see note May see note Apr sugars copied Apr see note Apr 05Jan see note 29 Sep mild nausea LONG ANTEPARTUM NOTES: Jun Selena is here for a pnv at 37/5. Good FM. No edema. Pelvic pressure and overall discomfort. C/S tomorrow, pt is excited. No questions or concerns expressed at this time. MK Jun Patient left office prior to seen by MD. Call to patient - reviewed BPP today 11/16 and findings. Pt indicates no questions and will follow up for C/S tomorrow as scheduled. Jun H&P taken to OB tkg Jun Selena is here for a pnv. FM present, pt feels FM has slowed a little bit but US reassured her. SL edema in fingers. Occasional [place], mild pelvic pressure and pain. BS's copied. C/S and tubal consent signed. BP recheck 118/82. MK Jun FS improved, continues current dose insulin Levemir 40u/55u. Preop consents reviewed and signed. Pt questions answered to her satisfaction. Plan for C/S and bilateral salpingectomy. Reviewed tubal contraceptive efficacy and risk for ectopic , permanence. Jun Uncomfortable! GBS today in case of vaginal delivery. She wants tubal with C/S so LARC declined. Wants to go over this with Dr LAINEZ. BS with a few elevations. Using Levemir 35 in am and 55 pm. LMT Jun GBS obtained. Increasing am insulin to 40u and continue 55u qpm. Labor, ROM, FM precautions. EFW 87th%, 3265g, MARIO 26 with MVP 10cm. BPP 11/16. Jun BS log given, States that she had a headache yesterday and never gets headaches. Went away after taking headaches. No other complaints Jun Glucose levels 82% at target, will maintain insulin at 35u qam, 55u qpm. BPP 11/16, MARIO 17cm. Denes headache, vision changes, abdominal pain today. Reviewed si/sx preeclampsia, FM precautions. May BPP 11/16. Sugars copied, good FM. Would like to discuss timing of C/S. LB May BPP 8/8. Increase pm insulin to 55U, continue am 35U. Dietary modification discussed. Will schedule C/S for 38w given 26% glucose elevation. PTL, FM precautions. May Selena is here for visit. She is concerned about her increased fluid. Discussed that her fluid is only boderline and baby looked great on BPP with score of 8/8. Will continue to monitor all with her hx of GDM. She continues with some elevated fastings and 1 hours. Dietary issues are noted by her and she is encouraged to continue to try to avoid foods that elevate her blood sugars. FM reviewed. LMT May Discussed dietary changes for am fasting glucose control - trial alternate snacks in evening. Labor, ROM, FM precautions. Apr Selena is here for a pnv at 29/6. Good FM. No edema present. Denies concerns/ questions. Blood sugars copied. MK Apr Increase Levemir to 35u qam, continue 45u qhs. Apr Call to patient for blood sugar review: Fastings 104-107, postprandials mostly at target. Rx Levemir 30u qam, 45u qhs. Apr TELEPHONE VISIT -- @ 6/ WGA with hx gestational diabetes on insulin for blood sugar review. Currently on Levemir 30Uqam/40Uqhs. Reviewed home blood sugars fastings 104-107. Post prandial sugars with 2 elevated sugars > 140 at 1h. Increase qhs Levemir to 45U. Apr Increasing pm Levemir to 40U qhs, continue 30U qam Apr Selena is here for visit, u/s. She brings copy of blood sugars. She is concerned about them and next step. She is on 12u of insulin. Fasting are still a problem and some elevated 1 hours also. We discussed there is definately room for changes in dosing/short acting insulin. She will discuss all further with Dr LAINEZ. Good FM, mild edema. LMT Apr Anatomy views completed. EFW 66th%, MVP >8cm. Discussed importance of euglycemia for health, wellbeing, reduction of stillbirth risk, lung development and hypoglycemia. Rx increase Levemir to 30U bid (minimum weight based dosing). PTL, ROM, FM precautions. Plans BTL with section. Telehealth blood sugar review next week. Mar Selena is here at 24.5 w gest for insulin teaching. She brought Levemir FlexTouch pen and needle tips. Educated on assembling pen w needle tip, dialing correct amount of 10 units, injecting insulin into a variety of correct sites and disposal of needle tip. Selena was attentive, asked appropriate questions and did all procedures with ease. She plans to give BID doses approx 12 hours apart and will continue to check her blood sugars. Advised Dr Kaiser may adjust dosage based on her numbers. Jhoan ANTUNEZ. Mar 22wk, anatomy u/s with limited head and spine views otherwise wnl. Will repeat u/s next visit, ordered. Pt with GDMA2 failed early 1hr GTT and declined 3hr GTT and was started on Metformin for elevated fasting OTBS by Dr. LAINEZ. Pt has no started taking metformin 500mg BID. Fasting 100 1hr PP 120. Educated on metformin and insulin, pt to start metformin and if poorly controlled will start insulin. Pt just had COVID, feeling much improved. [id number] testing today. JM Jan Selena is being seen for visit. Pt is 16 weeks and 5 days. Pt is feeling well. 1 GTT done today. 1st Covid shot done at [employer] (her work) last week, she states she had a merrill and fatigue afterwards. AM 26 Jan 16 weeks, early 1 hour GTT today with history of GDM A. To start baby aspirin. Discussed mandated Covid vaccination at [facility] Patient desires NIPT, will draw at next visit. Anatomy ultrasound next visit. JM Jan NOB TELEHEALTH VISIT, 20 MINUTE DURATION. Selena is a 30 year old with an MARYANN of 07/16/2021, current GA is 13 w 1d. She resides with her , Philip, and their two young sons. Both of her children were delivered by C/S at [facility]; she had GDM with both of them. Detailed history updated. Repeat C/S with BTL at [facility] is planned, and she will breastfeed. She is an established patient with this office and states that she has no questions about office practice patterns, including emergencies/danger signs, contacting the office during/after hours, reporting a suspected UTI, and common OTC medications approved/not approved for use during . She reports she feels nauseated most everyday. She prefers not to take medications, stating, It's manageable. Reviewed measures that may help minimize nausea, including small frequent meals with protein included throughout the day, adequate water hydration of at least one gallon per 24 hours, trying lemon water or weak lemonade, carb rich foods when nausea, and motion sickness bracelets. She takes a gummy vitamin and reports that she tolerates this well. Selena states that she had smoked occasionally prior to knowledge of , and she quit as soon as she found out. She denies use of drugs or ETOH. She desires genetic screening and declines carrier screening. Selena denies a history of depression, but feels that she has some anxiety, but that this does not interfere with her daily life. She eats an over all well balanced diet and drinks close to a gallon of water per 24 hours, she occasionally has a cup of something caffeinated. water/caloric/dietary needs reviewed, including anticipated weight gain, limiting empty calories, and food safety. She takes walks with he children, and walks on a tread mill at home. Lifting restrictions for reviewed. Selena states that she understands all information provided during NOB viist, and has no questions following same. AW New Dec Selena is here for visit with u/s today. She relates mild all day nausea. Hoping it soon goes away. She would like to have exemption letter for getting her Covid vaccine and will discuss this further with Dr LAINEZ. LMT Dec Pt here for MMapt. LMP 10/09/20. Pt wou;d be 8 wks d 6 days. Pt is having nause and vomitting. Reccomrnrnded trying Vitamin B6 50 mg and Doxayalymine at hs. If not voiding pt yo call. Pt had a severe sinus infection with 2 neg Covid tests and is doing better. This was 2 wks ago. Pt is taking a PNV daily and this is her 3rd and she stopped smoking when she found out she was . Positive UPt in office today. Depression screen neg. Filled out genetics screen. GR Sep as above. hx 2 prior sections presenting for confirmation. She has no concerns this . Overall feels well. Denies frequent emesis, pain or bleeding. Prior hx gestational diabetes. Continues nursing her 1 year old and plans to continue as long as possible. [facility] Assessment & Plan (1) 37 weeks gestation of : PLAN: Repeat (2) Gestational diabetes: QUALIFIERS: Gestational diabetes mellitus control: oral hypoglycemic-controlled Trimester: third trimester Qualified Code(s): O24.415 - Gestational diabetes mellitus in , controlled by oral hypoglycemic drugs PLAN: FS 110mg/dL this am (3) Encounter for sterilization: PLAN: Bilateral salpingectomy planned
[2021-07-01 06:06] LABS: Bedside Glucose 110 mg/dL (74-106)
[2021-07-01] MEDS: Lactated Ringers 1,000 ML 150 ML IV (06:33)
[2021-07-01] MEDS: Sodium Citrate/Citric Acid 30 ML UDC PO (06:59)
[2021-07-01] MEDS: Cefazolin 2 GM in 0.9% Normal Saline 100 ML IV (07:25)
--- NOTE | 2021-07-01 08:53 | OP.PCM_ITS ---
Assessment & Plan (1) Encounter for sterilization: (2) Gestational diabetes: QUALIFIERS: Gestational diabetes mellitus control: oral hypoglycemic-controlled Trimester: third trimester Qualified Code(s): O24.415 - Gestational diabetes mellitus in , controlled by oral hypoglycemic drugs (3) 37 weeks gestation of : (4) delivery delivered: Maternal Data Information MARYANN Calculator Estimated Delivery Date Method Current WG Current Estimate 07/16/21 LMP (Certain) 37w 6d Details Operative Information Date of Procedure: 07/01/21 Pre-Operative Diagnosis: 1. 37-6/7 weeks gestation 2. Previous section x2 3. Gestational diabetes on insulin, limited control 4. Sterilization request Post-Operative Diagnosis: 1. 37-6/7 weeks gestation 2. Previous section x2 3. Gestational diabetes on insulin, limited control 4. Sterilization request Indications for : Repeat Elective and Desires elective sterilization Indications Narrative: 30-year-old 3 para 2-0-0-2 presents at 37-6/7 weeks gestational age for scheduled repeat section and tubal sterilization. She has gestational diabetes and is on insulin with suboptimal control. She is counseled regarding delivery timing and mode including risks, benefits, indications and alternatives and opted to proceed with repeat section with lateral salpingectomy. Procedure Type: low transverse product assurance engineer #1: Keyonna Lyon Type of Anesthesia: Epidural Anesthesiologist: Jermain Moore Antibiotic Given: Ancef 2 grams IV x1 Drain: Bueno to straight drain Estimated Blood Loss: 700 ml Fluids Replaced: 1100 ml Procedure Start Time: 07:52 Procedure Stop Time: 08:49 Time of Delivery: 08:03 Findings Description of Procedure: The patient was taken to the operating room and spinal analgesia was administered. She is placed in a dorsal supine position with left lateral tilt. The perineum and abdomen were prepped and draped in sterile fashion. And the spinal was found to be adequate. A Pfannenstiel incision was made using a scalpel and brought down to incise the subcutaneous tissue and rectus fascia at the midline. Subcutaneous tissue was bluntly dissected off the fascia laterally. The fascial incision was dissected laterally and cephalad using curved Almaguer scissors. The superior leaflet of the rectus fascia was grasped using Bobby clamps and bluntly dissected and sharply dissected from the underlying rectus muscle. In a similar fashion the inferior rectus fascia was dissected from the underlying muscle. The rectus muscles were bluntly at the midline. The peritoneum was identified and entered [sharply]. An Gustavo O retractor was introduced into the abdomen. The bladder blade was placed into the abdomen and the vesicouterine peritoneal fold identified. The fold was incised and a bladder flap created. Bladder blade was then repositioned to the abdomen. A low transverse hysterotomy was made using the [Metzenbaum scissors] to level of the membranes. The hysterotomy was extended bluntly cephalad and caudad. The membranes were then ruptured revealing clear fluid. The head was elevated and brought to the level of the hysterotomy and the delivered revealing vigorous [female] . The cord was doubly clamped and cut after 60 seconds. The was passed to awaiting [nursery personnel]. The placenta was [expressed] from the uterus and appeared intact on inspection. The uterus was exteriorized and cleared of debris. There was dystocia preventing sufficient retraction of the uterus thus the Gustavo O retractor was removed and the bladder blade repositioned into the abdomen. The hysterotomy was then repaired using 1 Monocryl running lock suture. The right tubal fimbria was identified and isolated. Right salpingectomy was performed using the LigaSure to clamp, electrocoagulate and transect the tube from the mesosalpinx and the uterine cornua. In similar fashion the left tube fimbria was identified and left salpingectomy also performed. The hysterotomy was again inspected and the repair hemostatic. The uterus and adnexa were returned to the abdomen. The anterior cul-de-sac was cleared of debris. The peritoneum and rectus muscles were reapproximated using 3-0 Monocryl running suture. The rectus fascia was closed using 0 strata fix. The subcutaneous tissue was reapproximated using 3-0 Monocryl . The skin was closed using 4-0 Monocryl subcuticularly by the RN MED SURG under my supervision. A silver Mepilex occlusive dressing was placed over the incision. The fundus was firm. The patient was then transferred to the recovery room without complication. Sponge, instrument, and needle counts were correct ?2. weight 3760 g (8 pounds 4.6 ounces) Presentation: Positive for Vertex Amniotic Fluid Description: Clear Placental Delivery Description: Spontaneous Placenta Disposition: [facility] Cord Vessel Description: 3 Vessels Cord Entanglement: None A Gender: Female (1 minute): 8 (5 minute): 9 Delayed Cord Clamping: Yes Complications Risks of Surgery Discussed w/Patient: Bleeding, Anesthesia Risks, Infection, Permanency, Failure Rate of 1 to 2%, Injury to surrounding structure(s) including bowel and bladder, Availability of other non-permanent control options and -
[2021-07-01] MEDS: Oxytocin 30 units/NS 500 ml 30 UNITS/500 ML IV.SOLN 167 UNITS IV (09:34)
[2021-07-01] MEDS: Ketorolac 30 MG/ML Syringe IV ×3 (09:35→22:09)
[2021-07-01] MEDS: Ondansetron 4 MG/2 ML Vial IV (10:53)
[2021-07-01] MEDS: Lactated Ringers 1,000 ML 100 ML IV (12:30)
[2021-07-01 12:56] LABS: Bedside Glucose 80 mg/dL (74-106)
[2021-07-01] MEDS: Heparin Injection (Vial) 5,000 UNIT/ML VIAL 5000 UNIT SC ×2 (14:36→22:09)
--- NOTE | 2021-07-01 22:08 | NURSING ---
214- Pt. vomitting on day shift and was not able to hold her dinner down. Urine was concerntrated and lower output at beginning of this RN's shift. Pt. reports feeling better, and is able to hold down snack and water. Urine output looking much clearer, so ruiz taken out at 2144. Pt. educated that she must void at least once by 5, but encouraged to try in 1-2 hours. Pt. reports some anxiety because after last delivery, had to be cathed again after unable to void. Education given on adequate oral hydration and trying to void before bladder gets too full.
[2021-07-01] MEDS: 0.9% Saline Lock 10 ML Syringe IV (22:10)
--- NOTE | 2021-07-01 22:15 | NURSING ---
2115- This RN giving report to Sherrie Burgos RN who will be resuming care at this time.
[2021-07-02] VITALS (7 sets, daily range): BP systolic 103–129; BP diastolic 51–79; PULSE 72–87; RESP 15–16; TEMP 36.4–36.5; O2SAT 97–98
[2021-07-02] MEDS: Acetaminophen 500 MG Tablet 1000 MG PO ×4 (00:15→18:02)
[2021-07-02] MEDS: Ketorolac 30 MG/ML Syringe IV (03:32)
[2021-07-02] MEDS: 0.9% Saline Lock 10 ML Syringe IV (03:33)
[2021-07-02] MEDS: Heparin Injection (Vial) 5,000 UNIT/ML VIAL 5000 UNIT SC ×3 (06:09→22:33)
[2021-07-02 06:11] LABS: Bedside Glucose 97 mg/dL (74-106)
[2021-07-02 06:16] LABS: Hematocrit 32.7 % (37-47); Hemoglobin 10.3 g/dL (12.0-15.0); Mean Corp Hgb Conc 31.5 g/dL (32-36); Mean Corpuscular Hgb 24.8 pg (27.0-32.0); Mean Corpuscular Volume 78.8 fL (81-99); Mean Platelet Vol. 11.7 fl (6.2-12.0); Platelet Count 174 K/mm3 (150-450); RBC Distribution Width CV 15.3 % (11.6-14.6); Red Blood Count 4.15 M/mm3 (4.2-5.4)
--- NOTE | 2021-07-02 08:34 | PCM.PN.OB ---
Subjective Subjective No overnight complaints Objective Data Objective Data Vital Signs: Vital Signs Temp Pulse Resp BP Pulse Ox 97.8 F 69 16 103/56 L 97 07/01/21 23:45 07/01/21 23:45 07/02/21 05:45 07/02/21 03:45 07/02/21 03:45 Oxygen Delivery Method Room Air Weight: 216 lb 7.903 oz Body Mass Index (BMI) 43.7 Intake & Output: Intake and Output for Last 24 Hours 06/30/21 07/01/21 07/02/21 23:59 23:59 23:59 Intake Total 3975 / 3975 Output Total 1250 / 1250 850 / 850 Balance 2725 / 2725 -850 / -850 Lab / Micro Data Result Diagrams: 07/02/21 06:00 Labs: Laboratory Results - last 24 hr 07/01/21 12:52: POC Glucose 80 07/02/21 06:00: WBC 9.0, RBC 4.15 L, Hgb 10.3 L, Hct 32.7 L, MCV 78.8 L, MCH 24.8 L, MCHC 31.5 L, RDW Std Deviation 44.0 H, RDW Coeff of Anne 15.3 H, Plt Count 174, MPV 11.7 07/02/21 06:05: POC Glucose 97 Micro: Microbiology 06/29/21 09:15 Nasal Secretion SARS-CoV-2 Antigen (Rapid) - Final Physical Exam Const alert, oriented x3, no apparent distress, average body habitus, healthy appearing and well nourished HEENT normocephalic and moist oral mucous membranes Head and Scalp: atraumatic Face and Sinus: normal facial exam Neck full ROM Resp normal respiratory effort, no retractions and no use of accessory muscles GI GI Narrative: Bandage clean dry and intact Extremity normal to inspection, full ROM and no clubbing, cyanosis or edema Psych mental status grossly normal, affect normal, speech normal and activity/motor behavior normal Assessment & Plan (1) delivery delivered: PLAN: Postop day 1 status post repeat section bilateral tubal ligation. Gestational diabetes. Breast-feeding. Likely home tomorrow
[2021-07-02] MEDS: Ibuprofen 600 MG Tablet PO ×3 (10:08→22:08)
[2021-07-02] MEDS: Senna/Docusate Sodium 1 Tablet PO (13:05)
--- NOTE | 2021-07-02 18:53 | NURSING ---
1853- read and agree with ijeoma green charting
[2021-07-03] MEDS: Acetaminophen 500 MG Tablet 1000 MG PO ×2 (00:31→06:17)
[2021-07-03 01:25] VITALS: BP 98/42; PULSE 70; RESP 16; TEMP 36.4; O2SAT 98
[2021-07-03] MEDS: Ibuprofen 600 MG Tablet PO (04:35)
[2021-07-03] MEDS: Heparin Injection (Vial) 5,000 UNIT/ML VIAL 5000 UNIT SC (06:17)
--- NOTE | 2021-07-03 08:02 | PCM.DC.BLA ---
Discharge Summary Date of Admission: 07/01/21 Date of Discharge: 07/03/21 Summary: Patient arrived on 07/01/2021 for repeat section. Gestational diabetes, follow-up . Patient with routine postoperative recovery. Discharge home on 07/03/2021 Meaningful Use Info Meaningful Use Diagnoses (Choose all that apply): None applicable Discharge Plan Admission Admit Date/Time: 07/01/21 05:03 Primary Reason for Your Visit: Repeat section Attending Provider: Aleida Walker Primary Care Provider: Uvaldo Michel Instructions Additional Instructions / Restrictions: No lifting over 25 pounds for 2 to 3 weeks, otherwise routine activity. Okay for regular diet. Okay to shower. No tub baths for 2 weeks. No intercourse for 4 to 6 weeks. Call if fevers, chills, chest pain, shortness of breath. Follow-up 2 weeks postoperatively Discharge Orders/Prescriptions Prescriptions: New oxycodone 5 mg Tablet 5 mg PO Q6H PRN PRN (Reason: Pain Score 7-10) 4 Days Qty: 16 RF: 0 Continued PNV cmb#95-ferrous fumarate-FA 1 EACH tablet 1 ea PO DAILY RF: 0 Discontinued Levemir FlexTouch U-100 Insuln 100 unit/mL (3 mL) insulin pen 50 unit SUBCUT QHS RF: 0 Levemir FlexTouch U-100 Insuln 100 unit/mL (3 mL) insulin pen 40 unit SUBCUT DAILY RF: 0 Referrals / Follow Up: Uvaldo Michel MD [Primary Care Provider] - Disposition Disposition (needs filled in before D/C Order can be placed): Home, Self Care
--- NOTE | 2021-07-03 08:04 | PN.OBGYN_ITS ---
Subjective Subjective No overnight complaints. Pain well controlled. Objective Data Objective Data Vital Signs: Vital Signs Temp Pulse Resp BP Pulse Ox 97.5 F L 70 16 98/42 L 98 07/03/21 01:25 07/03/21 01:25 07/03/21 01:25 07/03/21 01:25 07/03/21 01:25 Oxygen Delivery Method Room Air Weight: 216 lb 7.903 oz Body Mass Index (BMI) 43.7 Intake & Output: Intake and Output for Last 24 Hours 07/01/21 07/02/21 07/03/21 23:59 23:59 23:59 Intake Total 3975 / 3975 Output Total 1250 / 1250 1550 / 1550 Balance 2725 / 2725 -1550 / -1550 Lab / Micro Data Result Diagrams: 07/02/21 06:00 Micro: Microbiology 06/29/21 09:15 Nasal Secretion SARS-CoV-2 Antigen (Rapid) - Final Physical Exam Const alert, oriented x3, no apparent distress, average body habitus, healthy appearing and well nourished HEENT normocephalic and moist oral mucous membranes Head and Scalp: atraumatic Face and Sinus: normal facial exam Neck full ROM Resp normal respiratory effort, no retractions and no use of accessory muscles Extremity normal to inspection, full ROM and no clubbing, cyanosis or edema Psych mental status grossly normal, affect normal, speech normal and activity/motor behavior normal Assessment & Plan (1) delivery delivered: PLAN: Postop day 2 status post repeat section bilateral tubal ligation. GDM A, will follow . Okay to discharge home today if okay with machine plug shaper
[2021-07-03 08:45] VITALS: BP 131/76; PULSE 77; RESP 16; TEMP 36.5; O2SAT 98
--- NOTE | 2021-07-03 09:30 | CASEMGMT ---
Social Work Brief Assessment Labor and Delivery Unit Patient Address: [address], [place] [id number] Phone number: [phone] Date of Referral/Notification: 07/01/2021 Time of Referral: [id number] Referred By: Dr. Reilly Date of Intervention: 07/03/2021 Time of Intervention: [id number] Reason for Referral: Maternal history of anxiety Informant: Medical record and mother of baby (GEOVANNA) Selena Munson History: GEOVANNA is a 30-year-old female, to the father of baby (FOB) Reyes Munson. GEOVANNA is 3, para 2 now 3 after delivering baby girl Aleida Munson on 07/01/2021. Delivery via section at 37 weeks gestation. weight for Aleida was 8 pounds 5 ounces. Apgars 8 and 9 at 1 and 5 minutes of life respectively. Other children in the home include Andrés born 01/02/2010 and Alfredito born 10/10/2019. FOB is gainfully employed as a sales agent financial report service. GEOVANNA works for [employer]. Has a history of depression and anxiety, with an increase of some anxiety during the . Denies any history of suicidal ideations or homicidal ideations. GEOVANNA reports she manages her anxiety by self-care, setting boundaries, and asking for help. No reports of substance use history and drug screen on 12/10/2020 was negative. Assessment: No voiced concerns by nursing staff regarding parent-child interactions or bonding. MOB was receptive in talking to social secretary, and indicated willingness to talk to support system about anxiety when present. MOB presented self as self-aware regarding anxiety importance of managing this. MOB reports to have necessary supplies to care for all of the children. No voiced concerns regarding ability to meet basic needs at home. GEOVANNA denies any domestic violence or safety concerns in the home. Reports to have a roof service technician who can continue to help with the older children. Additional support from the GEOVANNA mother and the FOB will have some time off to help. MOB receptive taking of a packet on mood and anxiety disorders. MOB aware about counseling and medication if needed. Plan: MOB and will discharge home when ready. Information for home-going has been provided including online supports, local members, and reading material. No further needs requested or indicated. -YUMIKO Avila, KEL *This note was generated with [employer] dictation software. It may contain incorrect words, spelling, and punctuation that were not noted in review of the chart prior to signing*
[2021-07-03 09:31] LABS: Pathology Specimen OB SEE PATHOLOGY REPORT
[2021-07-03 10:46] VITALS: RESP 14
== END 2021-07-03 11:30 | disposition home or self-care (01) | DRG 785 ==
PROVIDERS: Admitting Provider Obstetrics & Gynecology; PCP Family Medicine; Visit Provider Obstetrics & Gynecology
PROC: 0UT70ZZ Resection of Bilateral Fallopian Tubes, Open Approach (ICD-10-PCS; CPT 59514; principal; 2021-07-01 07:15)
DX: O34.219 Maternal care for unspecified type scar from previous cesarean delivery (principal); O24.424 Gestational diabetes mellitus in childbirth, insulin controlled; Z30.2 Encounter for sterilization; Z87.891 Personal history of nicotine dependence; Z37.0 Single live birth; Z3A.37 37 weeks gestation of pregnancy; Z86.16 Personal history of COVID-19; Z87.440 Personal history of urinary (tract) infections
CPT/HCPCS: 59050; 82962; 85025; 85027; 86850; 86900; 86901; 87426; 88302; 99218; 99251; C9803; J7120; 90686; A4216; G0378; G0463; J2405

== ENCOUNTER 2021-08-10 18:39 | Emergency (ER) | payer BC, SELFPAY ==
[2021-08-10 18:40] VITALS: BP 189/101; PULSE 57; RESP 22; TEMP 36.9; O2SAT 99; BMI 37.3
--- NOTE | 2021-08-10 19:13 | EDS_ITS ---
HPI HPI - GI History of Present Illness Chief Complaint: Flank Pain Informant: patient Abdominal Pain/Flank Pain Onset: Hours (Onset 1500) Context: Sudden Onset Timing: Continuous and Waxes and wanes Quality: Aching Location: Left Flank (Radiating anteriorly) Current Severity: Moderate Maximum Severity: Severe Worsened by: Nothing Relieved by: Nothing Nausea/Vomiting/Emesis GI Symptom: Positive for Nausea; Negative for Vomiting Diarrhea/Melena/Hematochezia GI Symptom: Negative for Diarrhea, Melena and Hematochezia Associated Symptoms Associated Symptoms: Positive for Hematuria and Urgency; Negative for Dysuria and Frequency Narrative Narrative: Patient is a 30-year-old who delivered 5.5 weeks ago and presents for abrupt onset of left flank pain that started at 1500 with radiation anteriorly. Patient is noted blood in her urine and has urgency. She has no history of renal ureterolithiasis. She denies fever, chills night sweats. She does report nausea without vomiting. She denies cardiac respiratory symptoms. There is no history of trauma. She did not have -induced hypertension. She did have gestational diabetes. Prior similar symptoms: No Recent Illness/Hospitalization: Yes PFSH PFSH Medical History COVID-19 affecting in second trimester Gestational diabetes mellitus Home Medications PNV cmb#95-ferrous fumarate-FA 1 ea PO DAILY 10/10/19 [History Last Taken 06/30/21] oxycodone 5 mg PO Q6H PRN PRN 4 Days #16 tab 07/03/21 [Rx Last Taken Unknown] naproxen 500 mg PO BID #14 tab 08/10/21 [Rx Last Taken Unknown] oxycodone-acetaminophen 1 tab PO Q6H PRN PRN 5 Days #20 tablet 08/10/21 [Rx Last Taken Unknown] Allergy/AdvReac Type Severity Reaction Status Date / Time No Known Allergies Allergy Verified 08/10/21 18:40 Family History Mother Diabetes Surgical History H/O breast augmentation History of tonsillectomy Previous section Social History (Updated 08/10/21 @ 19:[address] Chapin Worley MD) household members: spouse and children Smoking Status: Former smoker substance use type: does not use ROS ROS ED Constitutional Constitutional ED: Denies chills, fever(s), subjective, sweats or weight loss ENT ENT ED: Denies ear pain, rhinorrhea or sore throat Cardiovascular Cardiovascular: Denies chest pain, palpitations or racing heartbeat Respiratory/Chest Respiratory/Chest: Denies cough, dyspnea or dyspnea on exertion Gastrointestinal Gastrointestinal: Reports abdominal pain; Denies constipation, diarrhea, melena, nausea or vomiting Genitourinary Genitourinary ED: Reports hematuria; Denies dysuria or urinary frequency Musculoskeletal Musculoskeletal: Reports back pain; Denies arthralgias, myalgias or neck pain Integumentary Reports rash Neurologic Neurologic: Denies paresthesias or weakness Endocrine Endocrinology: Denies polydipsia, polyphagia or polyuria Hematologic/Lymphatic Hematologic/Lymphatic: Denies easy bleeding or easy bruising EXAM Physical Exam Const Vital Signs: 08/10/21 18:40 Temperature 98.4 F Temperature Source Temporal Pulse Rate 57 L Respiratory Rate 22 H Blood Pressure 189/101 H Blood Pressure Mean 130 Pulse Ox 99 Oxygen Delivery Method Room Air Positive well nourished, well developed and obese General Appearance ED: well developed; Negative for NAD or pallor Nutritional Appearance: obese HEENT Reports moist mucous membranes HEENT Narrative: Uvula midline. There is no erythema or exudate. There is no angioedema. normocephalic and atraumatic Eyes PERRL and EOMs intact bilaterally General Eye ED: Negative for pale conjunctiva or scleral icterus Neck no lymphadenopathy, supple and no JVD Neck Narrative: Trachea is midline. There is no inspiratory expiratory stridor. Resp normal respiratory effort and clear to auscultation bilaterally Cardio regular rhythm, S1 normal heart sound, S2 normal heart sound and no murmurs Rate: bradycardia GI non-tender, non-distended and no masses Auscultation: normoactive bowel sounds Palpation: soft Back/Spine no CVA tenderness Cervical Spine: Negative for cervical spine tenderness Thoracic Spine / Upper Back: Negative for thoracic spinal tenderness Lumbar Spine / Lower Back: Negative for lumbar spinal tenderness Extremity full ROM General Extremety ED: Negative for edema or tenderness General Extremity: Negative for edema Neuro CN's II-XII intact bilaterally and no sensory deficits noted Neuro Narrative: Patient has hyperreflexia. There is no clonus or Babinski sign. Sensorium / Orientation: alert, oriented to person, oriented to place and oriented to time Motor Exam: strength 5/5 throughout Psych mental status grossly normal and thought process normal Skin no wounds General Skin Exam: Negative for jaundice or pallor Lesions: no lesions Rashes: no rashes MDM MDM MDM Narrative Medical decision making narrative: Reason for presentation is consistent with obstructing ureteral stone. Will obtain urine to rule out infection. CT of the abdomen was obtained without contrast since she has no prior history of renal ureterolithiasis. Because patient is hyperreflexic with elevated blood pressure and is 4 to 5 weeks will obtain appropriate blood work to evaluate for hypertension versus elevated blood pressure due to pain. Patient reports marked improvement when reassessed after 12 mg of Toradol IV push and 4 mg of morphine IV push. Her nausea resolved with Zofran. Patient has a 1 cm proximal left ureteral stone with hydronephrosis. It is unlikely that she will pass this. Will discuss case with Dr. Ricci who is on for urology since she is in all likelihood will need a stent and possible lithotripsy. Lab Data Attestation: I reviewed the patient's lab results. Labs: Laboratory Results - last 24 hr 08/10/21 08/10/21 08/10/21 18:57 18:57 19:26 PT 12.3 INR 0.9 APTT 38.1 H Uric Acid 5.3 Total Bilirubin 0.30 Direct Bilirubin 0.07 AST 33 ALT 74 H Alkaline Phosphatase 109 Total Protein 8.3 H Albumin 4.0 Globulin 4.3 H Urine Color Yellow Urine Clarity Clear Urine pH 6.5 Ur Specific [place] 1.015 Urine Protein 15 H Urine Glucose (UA) Normal Urine Ketones 5 H Urine Occult Blood 250 H Urine Nitrite Negative Urine Bilirubin Negative Urine Urobilinogen Normal Ur Leukocyte Esterase 100 H Urine RBC 25-50 SEEN Urine WBC 0-5 SEEN Ur Squamous Epith Cells 0 SEEN Urine Bacteria 0 SEEN Urine Mucus 0 SEEN Radiography Diagnostic Testing: Clinical Impression(s) from Imaging Studies Abdomen/Pelvis CT 08/10/21 20:36 IMPRESSION: 1. Mildly enlarged left kidney with a moderate left hydronephrosis secondary to a 1 cm in diameter calculus at the left pelviureteral junction. 2. Presence of a 2 mm non-obstructing calculus in the midpole calyx left kidney and a 4 mm in diameter non-obstructing calculus in the midpole calyx of right kidney. 3. Normal ureters and bladder. 4. Mild constipation. 5. No appendicitis, diverticulitis, colitis, intestinal obstruction. 6. No cholecystitis or pancreatitis. 7. Normal anteverted uterus and no ovarian cystic or solid mass lesions. 8. No evidence of other significant abnormalities. Electronically Signed: Tristan Perry MD at 21:08 EDT , Discharge Plan Triage Chief Complaint: Flank Pain ED Provider: Chapin Worley Dx/Rx/DC Orders Clinical Impression: Hydronephrosis with urinary obstruction due to ureteral calculus Instructions: ED Kidney Stone w/ Colic Prescriptions: New oxycodone-acetaminophen [oxycodone-acetaminophen] 1 TABLET tablet 1 tab PO Q6H PRN PRN (Reason: pain) 5 Days Qty: 20 RF: 0 naproxen 500 MG tablet 500 mg PO BID Qty: 14 RF: 0 No Action PNV cmb#95-ferrous fumarate-FA 1 EACH tablet 1 ea PO DAILY RF: 0 oxycodone 5 mg Tablet 5 mg PO Q6H PRN PRN (Reason: Pain Score 7-10) 4 Days Qty: 16 RF: 0 Primary Care Provider: Uvaldo Michel Referrals: Casey Ricci MD [STAFF PHYSICIAN] - 3-5 Days Uvaldo Michel MD [Primary Care Provider] - Disposition Disposition: Home, Self Care
[2021-08-10] MEDS: Ondansetron 4 MG/2 ML Vial IV (19:29)
[2021-08-10] MEDS: Ketorolac 15 MG/ML Vial IV (19:29)
[2021-08-10] MEDS: 0.9% Normal Saline 1,000 ML 250 ML IV (19:29)
[2021-08-10 19:45] LABS: Bacteria 0 SEEN /hpf (None Seen); Mucous, Urine 0 SEEN /hpf (<or=2+); Squamous Epithelial Cells - UA 0 SEEN /hpf (5-10)
[2021-08-10 19:52] LABS: Color, Urine Yellow (Yellow); Glucose, Dipstick Normal (Normal); Ketone-Dipstick 5 mg/dl (Negative); Leukocyte Esterase-Dipstick 100 /ul (Negative); Nitrite-Dipstick Negative (Negative); Occult Blood-Urine 250 /ul (Negative); Protein-Dipstick 15 mg/dl (Negative); Specific Gravity, Urine 1.015 (1.002-1.030); Urine Bilirubin Dipstick Negative (Negative); Urine Clarity Clear (Clear); Urine Urobilinogen Normal (Normal); Urine pH 6.5 (5.0 - 8.0)
[2021-08-10 19:56] LABS: International Normalized Ratio 0.9; Prothrombin Time (Protime)PT. 12.3 SECONDS (11.7-14.9)
[2021-08-10 19:57] LABS: Partial Thromboplast Time 38.1 Seconds (24.1-36.2)
[2021-08-10 20:05] LABS: Red Blood Cells-Urine 25-50 SEEN /hpf (0-5); White Blood Cells 0-5 SEEN /hpf (0-5)
[2021-08-10 20:06] LABS: AST(SGOT) 33 U/L (15-37); Alanine Aminotransfer ALT/SGPT 74 U/L (13-56); Alkaline Phosphatase 109 U/L (45-117); Bilirubin, Direct 0.07 mg/dL (0.00-0.30); Globulin 4.3 g/dL (2.2-4.2); Protein, Total 8.3 g/dL (6.4-8.2); Uric Acid 5.3 mg/dL (2.6-6.0)
--- NOTE | 2021-08-10 20:36 | CT_ITS ---
STUDY: CT ABDOMEN AND PELVIS WITHOUT CONTRAST ENHANCEMENT OF 2047 HOURS ON 08/10/2021 REASON FOR EXAM: Female, 30 years old. Kidney Stone RADIATION DOSAGE (If Supplied By Facility): CTDIvol = ( 17.22 ) mGy, DLP = ( 791.66 ) mGycm TECHNIQUE: Transaxial images were obtained from the dome of the diaphragm to the symphysis pubis without oral contrast, and without intravenous contrast. Sagittal and coronal images were reconstructed. Individualized dose optimization techniques were used for this CT. COMPARISON: None. FINDINGS: The visualized lung bases are unremarkable. The visualized portions of the heart are within normal limits. Bilateral saline breast implants are present. Normal liver. Normal gallbladder and extrahepatic biliary system; no cholecystitis or cholelithiasis.. Normal spleen. Normal pancreas; no pancreatitis or pancreatic mass lesions.. Normal bilateral adrenal glands. Left kidney is larger than the right. There is evidence of a moderate left hydronephrosis with a 1 cm diameter calculus obstructing the left kidney at the left pelviureteral junction. Additionally, there is a 2 mm non-obstructing calculus in midpole calyx of left kidney. There is a 4 mm non-obstructing calculus in a midpole calyx of the right kidney. Normal visualized stomach. Normal small intestine. Mild constipation. No diverticulitis, colitis, or intestinal obstruction. The appendix is visualized and appears normal. Normal abdominal aorta. Normal inferior vena cava. Normal retroperitoneum. Normal urinary bladder. Normal anteverted uterus. No ovarian cystic or solid mass lesions. Normal abdominal wall. Normal osseous structures. CT/Abdomen/Pelvis without Cont IMPRESSION: 1. Mildly enlarged left kidney with a moderate left hydronephrosis secondary to a 1 cm in diameter calculus at the left pelviureteral junction. 2. Presence of a 2 mm non-obstructing calculus in the midpole calyx left kidney and a 4 mm in diameter non-obstructing calculus in the midpole calyx of right kidney. 3. Normal ureters and bladder. 4. Mild constipation. 5. No appendicitis, diverticulitis, colitis, intestinal obstruction. 6. No cholecystitis or pancreatitis. 7. Normal anteverted uterus and no ovarian cystic or solid mass lesions. 8. No evidence of other significant abnormalities. Electronically Signed: Tristan Perry MD at 21:08 EDT ,
--- NOTE | 2021-08-10 20:52 | ED.RN ---
Patient is and has refused morphine if she would have to pump and dump. Patient has been informed by this RN that she would have to dump her breast milk if she did take morphine. Pt states she is doing well with Toradol. pain has decreased to 1/10. No further requests at this time.
== END 2021-08-10 21:56 | disposition home or self-care (01) ==
PROVIDERS: Emergency Provider Emergency Medicine; PCP Family Medicine; Visit Provider Emergency Medicine
DX: O99.893 Other specified diseases and conditions complicating puerperium (principal); Z87.891 Personal history of nicotine dependence; Z86.16 Personal history of COVID-19; E66.9 Obesity, unspecified; N13.2 Hydronephrosis with renal and ureteral calculous obstruction; O99.215 Obesity complicating the puerperium; Z68.37 Body mass index [BMI] 37.0-37.9, adult; R03.0 Elevated blood-pressure reading, without diagnosis of hypertension
CPT/HCPCS: 74176; 80076; 81001; 84550; 85610; 85730; 96361; 96374; 96375; 99282; J7030; A4216; J2405

== ENCOUNTER → 2021-08-11 | Outpatient (CLI) | payer BC, SELFPAY ==
[2021-08-11 15:16] LABS: Probe Check PASS; Specimen Processing Control PASS
== END | disposition home or self-care (01) ==
LOC: PSN 11:39
PROVIDERS: PCP Family Medicine; Referring Provider Urology; Visit Provider Urology
DX: Z03.818 Encounter for observation for suspected exposure to other biological agents ruled out (principal)
CPT/HCPCS: 87635; C9803; U0003; U0005

== ENCOUNTER → 2021-08-18 | Outpatient (CLI) | payer BC, SELFPAY ==
--- NOTE | 2021-08-18 13:00 | RAD_ITS ---
EXAM: XR ABDOMEN, 1 VIEW CLINICAL INDICATION: CALCULUS OF URETER TECHNIQUE: Frontal supine view of the abdomen/pelvis. This report was created using [employer] report generation technology. COMPARISON: None. FINDINGS: LOWER THORAX: No acute pathology. GASTROINTESTINAL TRACT: Normal bowel gas pattern. Non-obstructive. No bowel or stomach distention. ORGANS: 6 mm calculus projecting over the left lower renal pole. Left ureteral stent in place. No bladder calculi. No organomegaly. BONES/JOINTS: Small sclerotic focus involving the right subtrochanteric region is nonspecific but could represent a bone island. SOFT TISSUES: No acute pathology. RAD/Abdomen Single View IMPRESSION: 6 mm calculus projecting over the left lower renal pole. Left ureteral stent in place. Electronically Signed: Tho Ramos MD at 21:08 EDT ,
== END | disposition home or self-care (01) ==
LOC: RAD 12:56
PROVIDERS: PCP Family Medicine; Referring Provider Urology; Visit Provider Urology
DX: N20.1 Calculus of ureter (principal)
CPT/HCPCS: 74018

== ENCOUNTER 2021-08-21 11:13 | Day surgery (SDC) | payer BC, SELFPAY ==
--- NOTE | 2021-08-21 11:18 | RAD_ITS ---
STUDY: X-RAY - ABDOMEN/PELVIS REASON FOR EXAM: Female, 30 years old. PRE OP TECHNIQUE: 1 view COMPARISON: 08/18/2021 FINDINGS: Please see the impression. RAD/Abdomen Single View IMPRESSION: Left double-J ureteral stent in place. A 0.6 cm stone at the left UPJ or in the proximal left ureter just below the UPJ. A 0.4 cm stone in the right kidney. Moderate to large amount of retained stone throughout the colon with no evidence of bowel obstruction. Grossly intact osseous structures. Electronically Signed: Roland Adams MD at 17:28 EDT ,
[2021-08-21 11:55] VITALS: BP 152/96; PULSE 74; RESP 16; TEMP 36.2; O2SAT 98; BMI 37.5
[2021-08-21] MEDS: Lactated Ringers 1,000 ML 15 ML IV (12:00)
--- NOTE | 2021-08-21 13:10 | PCM.HP.STD ---
HPI - General HPI Narrative LEEANNE WINSLOW, is a 30 F who presents for left ESWL, stent in place PFSH Medical History (Updated 08/20/21 @ 08:23 by Razia Fields) Asthma COVID-19 affecting in second trimester Depression Former smoker Gestational diabetes mellitus History of edema Injury of back Shortness of breath on exertion Wears glasses Home Medications naproxen 500 mg PO BID #14 tab 08/10/21 [Rx Last Taken Unknown] cephalexin 500 mg PO BID #6 cap 08/21/21 [Rx Last Taken Unknown] Allergy/AdvReac Type Severity Reaction Status Date / Time No Known Allergies Allergy Verified 08/20/21 08:15 Family History Mother Diabetes Surgical History (Updated 08/20/21 @ 08:23 by Razia Fields) H/O breast augmentation History of tonsillectomy Hx of cystoscopy Previous section Social History (Updated 08/10/21 @ 19:[address] Chapin Worley MD) household members: spouse and children Smoking Status: Former smoker substance use type: does not use Vital Signs Vital Signs Vital Signs: 08/21/21 11:55 Temperature 97.2 F L Temperature Source Temporal Pulse Rate 74 Respiratory Rate 16 Respiratory Pattern Normal Blood Pressure 152/96 H Blood Pressure Mean 114 Blood Pressure Source Monitor Blood Pressure Position Semi-Fowlers Blood Pressure Location Left Arm Pulse Ox 98 Oxygen Delivery Method Room Air Weight Weight: 84.459 kg Body Mass Index (BMI) 37.5
--- NOTE | 2021-08-21 13:10 | PCM.DC ---
Discharge Instructions Diet Discharge Diet: No restrictions Activity Discharge Activity: Return to Normal Activity and May Not Drive (while taking narcotic pain medications.) Dressing / Incision Call your doctor if you observe: Fever of 101 or Higher Follow Up Care Please Follow Up With: Casey Ricci MD When: Call [phone] for an appointment Test Results: Test results from this visit will be discussed in further detail at your follow-up appointment, if applicable. Discharge Plan Admission Primary Reason for Your Visit: left kidney stone Attending Provider: Casey Ricci Primary Care Provider: Uvaldo Michel Instructions Patient Instructions: Shock Wave Lithotripsy Discharge Orders/Prescriptions Prescriptions: New cephalexin 500 mg capsule 500 mg PO BID Qty: 6 RF: 0 Continued naproxen 500 MG tablet 500 mg PO BID Qty: 14 RF: 0 Other Ambulatory Orders: Abdomen Single View (Routine) Timeframe: [id number] Facility: [facility] - Location: [facility] Ordered By: Dr. Casey Ricci Referrals / Follow Up: Casey Ricci MD [STAFF PHYSICIAN] - Uvaldo Michel MD [Primary Care Provider] - Disposition Disposition (needs filled in before D/C Order can be placed): Home, Self Care
[2021-08-21] MEDS: Cefazolin 2 GM in 0.9% Normal Saline 100 ML IV (13:25)
--- NOTE | 2021-08-21 13:31 | OP.PCM_ITS ---
Report of Operation Date of Procedure: 08/21/21 Pre-Operative Diagnosis: left kidney stone s/p stent Post-Operative Diagnosis: same Surgery/Procedure Performed:: left ESWL and cysto and stent removal Description of Surgical Findings:: Patient presents to the hospital for treatment of a kidney stone with shockwave lithotripsy. In the preoperative area and x-ray was done to confirm the location of the stone. The x-ray was reviewed and the stone location was reviewed. In the preoperative setting I spoke with the patient regarding the treatment of the stone how the treatment would be conducted and the expectations after surgery. The patient understands there is a risk of bleeding and infection. Also discussed the very rare risk of hematoma or damage to the kidney. We also discussed the risk that the shockwave machine will fail to break the stone adequately and that the patient may need other surgical procedures. We also discussed the possibility that the patient may need a stent after the procedure. After reviewing the procedure with the patient, the patient is signed the consent form all the patient's questions were addressed and was taken back to the operating room for treatment of a kidney stone. Patient was taken back to the operating room, patient was identified by the nursing staff, we identified the side of the treatment and the patient side of treatment had been marked by my initials. The patient underwent general anesthetic and was placed supine on the lithotripter table. We then used fluoroscopy to identify the stone on the Left side. We then positioned the patient under the lithotripter and we used triangulation technique to identify the location of the stone and then we made sure that the stone was engaged in the F2 focal point of F2 Donier lithoprior machine. Once the patient was posit ioned appropriately and the stone was identified and placed in the F2 focal point of the lithotripter machine we then proceeded with shockwave lithotripsy. In the beginning the shockwave was delivered at a rate of 90 shocks per minute, we monitor the EKG for any ectopy. The power was slowly increased to 5 kV and subsequently at the 7 kV. We then proceeded with the treatment we move the therapy had around during the treatment to make sure the stone stayed in the F2 focal point during the entire treatment and after 3000 shockwaves were delivered to the stone under fluoroscopic guidance the treatment was completed. The patient's urethra and genitals were prepped and draped in usual sterile fashion. I went into the bladder with a 21 [place]ese rigid cystourethroscope. I grabbed the stent emanating from the Left ureteral orifice and then gently remove the stent from the bladder. I then drained the patient's bladder. The patient was given instructions to call the office to make an a follow-up appointment with an xray to evaluate the success of the treatment, pateint understands that its possible the stones may need another procedure.At this point the patient's anesthetic was reversed patient was extubated and taken back to the PACU in stable condition. Surgeon: angelia Type of Anesthesia: General Drains: stent removed Admit VTE Documentation VTE Present on Admission: No VTE Mechan Device Prophylaxis: SCD's VTE Pharm Prophylaxis ordered?: No
[2021-08-21 14:11] VITALS: BP 129/85; PULSE 74; RESP 16; TEMP 36.2; O2SAT 97
[2021-08-21 14:15] VITALS: BP 129/90; PULSE 83; RESP 16; O2SAT 98
[2021-08-21 14:31] VITALS: BP 129/82; PULSE 64; RESP 16; O2SAT 100
[2021-08-21 14:39] VITALS: BP 131/83; PULSE 55; RESP 16; TEMP 36.6; O2SAT 98
[2021-08-21 15:09] VITALS: BP 131/83; BP 153/92; PULSE 64; RESP 16; TEMP 36.4; O2SAT 98
== END 2021-08-21 15:13 | disposition home or self-care (01) ==
LOC: SDC 11:13 → AC 11:15
PROVIDERS: PCP Family Medicine; Referring Provider Urology; Visit Provider Urology
PROC: (CPT 50590; principal; 2021-08-21 13:15)
DX: N20.0 Calculus of kidney (principal); Z87.891 Personal history of nicotine dependence; J45.909 Unspecified asthma, uncomplicated; Z86.16 Personal history of COVID-19; Z46.6 Encounter for fitting and adjustment of urinary device
CPT/HCPCS: 00873; 52310; 74018; J7120; J2405